=== PATIENT | female | born 1965 | race Caucasian/White ===

== ENCOUNTER → 2016-08-04 | Outpatient (REF) | payer MEDICARE, MEDICAID | LOC: M SFHCLERA 15:25 | PROVIDERS: ATTEND Physician Assistant | DX: R39.89 Other symptoms and signs involving the genitourinary system (principal) | CPT/HCPCS: 81002; 87086; G0463 ==

== ENCOUNTER 2016-08-22 16:54 | Emergency (ER) | payer MEDICARE, MEDICAID ==
--- NOTE | 2016-08-22 18:23 | REP ---
Left wrist four views: There is a comminuted, nondisplaced, intra-articular compression fracture of the distal radius. Signed by Augusto Delgado MD 08/22/2016 06:15 P
[2016-08-22] MEDS ORDERED: NORCO, ANEXSIA 5/325MG TABLET (HYDROcodone/ACETAMINOPHEN) As Ordered ONE (19:37)
--- NOTE | 2016-08-22 20:41 | EDDOCDS ---
Nurse's Notes [facility] Name: Faith Watt Age: 50 yrs Sex: Female : 1965 Arrival Date: 08/22/2016 Time: 16:54 Bed I6 Private MD: Areli Saravia M. Diagnosis: Fracture of head of radius;Fracture of lower end of radius Presentation: 08/22 17:09 Presenting complaint: Patient states: fell on ice and feels like she broke her wrist? hs1 or arm. Bony deformity noted to left wrist. Patient reports falling approx 30 [address] in [address] of her home. Adult Sepsis Screening: The patient does not have new or worsening altered mentation. Patient's respiratory rate is less than 22. Systolic blood pressure is greater than 100. Patient has a qSOFA score of 0- Negative Sepsis Screen. Suicide/Homicide risk assessment- the patient denies having any suicidal and/or homicidal ideations and does not present with any other emotional, behavioral or mental health complaints. Status: Patient is not a dining services director or dependent. Transition of care: patient was not received from another setting of care. 17:09 Acuity: ANYA Level 3 hs1 17:09 Method Of Arrival: Walkin/Carried/Asstd hs1 Triage Assessment: 17:16 General: Appears in no apparent distress, Behavior is appropriate for age, cooperative. hs1 Pain: Location: dorsum of left hand and dorsal aspect of left wrist Pain currently is 10 out of 10 on a pain scale. Pt Declines HIV testing. Musculoskeletal: Range of motion limited in left wrist. 19:23 I have visited this patient for a triage reassessment. dsf ACETYLENE BURNER: 17:16 LMP N/A - Hysterectomy hs1 Historical: - Allergies: PENICILLINS; - Home Meds: 1. losartan Unknown oral Unknown 2. metoprolol tartrate 50 mg Oral tab 1 tab 2 times per day 3. Nexium 40 mg Oral cpDR 1 cap once daily 4. trazodone 100 mg Oral tab nightly 5. prazosin 2 mg Oral cap 2 caps nightly - PMHx: Hypertension; GERD; breast CA; - PSHx: Hysterectomy; ; fallopian tube removal; Carpal Tunnel Repair- Right; Laparoscopy; espophageal stretching; - Social history: Smoking status: Patient states was never smoker of tobacco. No barriers to communication noted, The patient speaks fluent Khmer, Speaks appropriately for age. - Family history: Not pertinent. - : The pt / caregiver states he / she is not on anticoagulants. Home medication list is obtained from the patient. - Exposure Risk Screening:: None identified. Screenin:38 Screening information is obtained from the patient. Fall risk: No risks identified. mlc Assistance ADL's: requires no assistance with activities of daily living. Abuse/DV Screen: The patient / caregiver reports he/she is: not in a situation that causes fear, pain or injury. Nutritional screening: No deficits noted. Advance Directives: There is no active DNR order. home support is adequate. Assessment: 19:21 General: Appears uncomfortable, Behavior is appropriate for age, cooperative. Pain: dsf Location: left forearm and left hand Pain currently is 10 out of 10 on a pain scale. Quality of pain is described as aching, sharp, throbbing. Neurological: Level of Consciousness is awake, alert. Cardiovascular: Capillary refill < 3 seconds. Respiratory: Airway is patent Respiratory effort is even, unlabored, Respiratory pattern is regular, symmetrical. Derm: Skin is pink, warm & dry. Musculoskeletal: Capillary refill < 3 seconds in left fingers. 19:28 General: Appears uncomfortable. Pain: Location: left antecubital area, dorsal aspect of nn1 left forearm, left wrist, left hand, left elbow and palmar aspect of left forearm Pain currently is 10 out of 10 on a pain scale. Musculoskeletal: Capillary refill < 3 seconds in left fingers Range of motion limited in left elbow and left wrist and left hand. 19:30 Musculoskeletal: Swelling present in palmar aspect of left forearm and left elbow and nn1 dorsal aspect of left forearm and left wrist. 20:38 General: Appears in no apparent distress, comfortable, Behavior is cooperative. Pain: mlc Pain currently is 9 out of 10 on a pain scale. Neurological: Level of Consciousness is awake, alert, obeys commands, Oriented to person, place, time. Respiratory: Airway is patent Respiratory effort is even, unlabored, Respiratory pattern is regular. Derm: Skin is pink, warm & dry. Musculoskeletal: Circulation, motion, and sensation intact Capillary refill < 3 seconds in left fingers. Vital Signs: 16:55 BP 128 / 84; Pulse 96; Resp 18; Temp 96.7(O); Pulse Ox 99% on R/A; Weight 72.12 kg (R); elp Height 5 ft. 3 in. (160.02 cm) (R); 19:28 BP 103 / 68; Pulse 98; Resp 18; Temp 99.5; Pulse Ox 97% on R/A; Pain 10/10; nn1 20:38 BP 111 / 68; Pulse 87; Resp 18; Pulse Ox 97% ; Pain 9/10; mlc 16:55 Body Mass Index 28.17 (72.12 kg, 160.02 cm) el Vitals: 16:55 Log In Time: August 22, 2016 at 16:54. elp ED Course: 16:55 Patient visited by Lyndsey Travis PCA. elp 16:55 Areli Saravia is Private Physician. elp 16:55 Patient moved to Waiting elp 16:56 Patient visited by Lyndsey Travis PCA. elp 16:56 Patient moved to Pre RCE elp 17:11 Triage Initiated hs1 19:09 Wrist, Complete Returned. EDMS 19:19 Patient moved to Triage 3 jmv 19:23 Patient visited by Nida Nails,ROBBIE. dsf 19:24 Rajat Espinosa FNP is [facility]. ke 19:25 Patient visited by Rajat Espinosa FNP. ke 19:25 Patient visited by Rajat Espinosa FNP. ke 19:31 [facility] Payment Agreement was scanned into [employer] and attached to record. [id number] 19:40 Patient moved to TR7 dsf 20:04 Patient visited by Rajat Espinosa FNP. ke 20:17 Patient moved to I6 / nn1 20:27 [facility] is Referral Physician. ke 20:38 The patient / caregiver is instructed regarding the plan of care and ED course. mlc 20:38 No IV's were initiated during this patient's visit. No procedures done that require [facility] assistance. Administered Medications: 19:39 Drug: HYDROcodone-acetaminophen 2 tabs [hydrocodone 5 mg-acetaminophen 325 mg tablet (2 dsf tabs)] Route: PO; Order Results: Radiology Order: Wrist, Complete Test: Wrist, Complete REASON FOR EXAMINATION: Trauma; Left wrist four views:; ; There is a comminuted, nondisplaced, intra-articular compression fracture of the; distal radius.; ; ; Signed by; Augusto Delgado MD 08/22/2016 06:15 P; Outcome: 20:28 Discharge ordered by Provider. juaquin 20:38 Discharge Assessment: Patient awake, alert and oriented x 3. No cognitive and/or mlc functional deficits noted. Patient verbalized understanding of disposition instructions. The following High Risk Discharge criteria are identified: None. Discharged to home ambulatory. Condition: good. Discharge instructions given to patient, Instructed on discharge instructions, follow up and referral plans. medication usage, no driving heavy equipment, Demonstrated understanding of instructions, medications, Pt was receptive of discharge instructions/ teaching. Prescriptions given X 2. No special radiology studies were completed. Property sent home with patient. 20:40 Discharge Assessment: patient administered narcotics - yes. Pt provided with safe mlc discharge. 20:41 Patient left the ED. mlc Signatures: Dispatcher [employer] EDMS Rajat Espinosa, TWENTY ONE DEALER TWENTY ONE DEALER Angella Gonzalez RN RN hs1 Nida Nails,RN RN dsf Lyndsey Travis, AUTOMATIC FOLDER SEAMER AUTOMATIC FOLDER SEAMER elp Katt Blanca RN RN mlc Nunez, Nikkole, RN RN nn1 Adriana Carcamo, Reg Reg ks16 Myron Mckinley, AUTOMATIC FOLDER SEAMER AUTOMATIC FOLDER SEAMER jmv PEE
--- NOTE | 2016-08-22 20:41 | EDDOCDS ---
Physician Documentation [facility] Name: Faith Watt Age: 50 yrs Sex: Female : 1965 Arrival Date: 08/22/2016 Time: 16:54 Bed I Private MD: Areli Saravia M. Disposition: 08/22/16 20:28 Discharged to Home/Self Care. Impression: Fracture of head of radius, Fracture of lower end of radius. - Condition is Stable. - Discharge Instructions: Elastic Bandage and RICE, Cast or Splint Care, Wrist Fracture. - Prescriptions for [place] 5- 325 mg Oral Tablet - take 1 tablet by ORAL route every 6 hours As needed MDD: 4 tabs; 20 tablet. Zofran 4 mg Oral Tablet - take 1 tablet by ORAL route 4 times per day As needed; 10 tablet. - Medication Reconciliation, Local Pharmacy Hours form. - Follow up: [facility]; When: Call to arrange an appointment; Reason: Further diagnostic work-up, Continuance of care. - Problem is new. - Symptoms are unchanged. Historical: - Allergies: PENICILLINS; - Home Meds: 1. losartan Unknown oral Unknown 2. metoprolol tartrate 50 mg Oral tab 1 tab 2 times per day 3. Nexium 40 mg Oral cpDR 1 cap once daily 4. trazodone 100 mg Oral tab nightly 5. prazosin 2 mg Oral cap 2 caps nightly - PMHx: Hypertension; GERD; breast CA; - PSHx: Hysterectomy; ; fallopian tube removal; Carpal Tunnel Repair- Right; Laparoscopy; espophageal stretching; - Social history: Smoking status: Patient states was never smoker of tobacco. No barriers to communication noted, The patient speaks fluent French, Speaks appropriately for age. - Family history: Not pertinent. - : The pt / caregiver states he / she is not on anticoagulants. Home medication list is obtained from the patient. - Exposure Risk Screening:: None identified. 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 3 in. (160.02 cm) (R); 19:28 BP 103 / 68; Pulse 98; Resp 18; Temp 99.5; Pulse Ox 97% on R/A; Pain 10/10; nn1 20:38 BP 111 / 68; Pulse 87; Resp 18; Pulse Ox 97% ; Pain 9/10; mlc 16:55 Body Mass Index 28.17 (72.12 kg, 160.02 cm) elp MDM: 17:21 Wrist, Complete Ordered. EDMS 19:30 Financial registration complete. ks 19:31 [facility] Payment Agreement was scanned into [employer] and attached to record. ks 19:36 HYDROcodone-acetaminophen 5 mg-325 mg 2 tabs PO once ordered. ke 19:36 Elbow, Complete Ordered. EDMS Administered Medications: 19:39 Drug: HYDROcodone-acetaminophen 2 tabs [hydrocodone 5 mg-acetaminophen 325 mg tablet (2 dsf tabs)] Route: PO; Signatures: Dispatcher [employer] EDMS Rajat Espinosa FNP DOCK PUMPER Angella Jose RN RN hs1 Katt Blanca RN RN [facility] Adriana Carcamo, Reg Reg ks16 Nida Nails RN dsf The chart was reviewed and I authenticate all verbal orders and agree with the evaluation and treatment provided.Attachments: 19:31 [facility] Payment Agreement ks16 MTDD
--- NOTE | 2016-08-23 08:41 | REP ---
Left elbow series: Five views. History: Trauma. Findings: Five views of the left elbow demonstrate normal bones, joints, and soft tissues. No fracture, subluxation or joint effusion is evident. Impression: Negative left elbow series. Signed by Guille Alva MD 08/23/2016 02:59 P
--- NOTE | 2016-08-24 21:41 | EDDOCDS ---
Physician Documentation [facility] Name: Faith Watt Age: 50 yrs Sex: Female : 1965 Arrival Date: 08/22/2016 Time: 16:54 Bed I Private MD: Areli Saravia M. Disposition: 08/22/16 20:28 Discharged to Home/Self Care. Impression: Fracture of head of radius, Fracture of lower end of radius. - Condition is Stable. - Discharge Instructions: Elastic Bandage and RICE, Cast or Splint Care, Wrist Fracture. - Prescriptions for [place] 5- 325 mg Oral Tablet - take 1 tablet by ORAL route every 6 hours As needed MDD: 4 tabs; 20 tablet. Zofran 4 mg Oral Tablet - take 1 tablet by ORAL route 4 times per day As needed; 10 tablet. - Medication Reconciliation, Local Pharmacy Hours form. - Follow up: [facility]; When: Call to arrange an appointment; Reason: Further diagnostic work-up, Continuance of care. - Problem is new. - Symptoms are unchanged. Historical: - Allergies: PENICILLINS; - Home Meds: 1. losartan Unknown oral Unknown 2. metoprolol tartrate 50 mg Oral tab 1 tab 2 times per day 3. Nexium 40 mg Oral cpDR 1 cap once daily 4. trazodone 100 mg Oral tab nightly 5. prazosin 2 mg Oral cap 2 caps nightly - PMHx: Hypertension; GERD; breast CA; - PSHx: Hysterectomy; ; fallopian tube removal; Carpal Tunnel Repair- Right; Laparoscopy; espophageal stretching; - Social history: Smoking status: Patient states was never smoker of tobacco. No barriers to communication noted, The patient speaks fluent Upper Sorbian, Speaks appropriately for age. - Family history: Not pertinent. - : The pt / caregiver states he / she is not on anticoagulants. Home medication list is obtained from the patient. - Exposure Risk Screening:: None identified. 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 3 in. (160.02 cm) (R); 19:28 BP 103 / 68; Pulse 98; Resp 18; Temp 99.5; Pulse Ox 97% on R/A; Pain 10/10; nn1 20:38 BP 111 / 68; Pulse 87; Resp 18; Pulse Ox 97% ; Pain 9/10; mlc 16:55 Body Mass Index 28.17 (72.12 kg, 160.02 cm) elp MDM: 17:21 Wrist, Complete Ordered. EDME 19:30 Financial registration complete. [facility] 19:31 [facility] Payment Agreement was scanned into [employer] and attached to record. [facility] 19:36 HYDROcodone-acetaminophen 5 mg-325 mg 2 tabs PO once ordered. 19:36 Elbow, Complete Ordered. EDME 08/23 10:48 T-Sheet-- Draft Copy was scanned into [employer] and attached to record. gb Administered Medications: 08/22 19:39 Drug: HYDROcodone-acetaminophen 2 tabs [hydrocodone 5 mg-acetaminophen 325 mg tablet (2 dsf tabs)] Route: PO; Signatures: Dispatcher [employer] EDME Becky Reyes, Reg Reg gb Rajat Espinosa, REPORTING MANAGER REPORTING MANAGER Angella Jose RN RN hs1 Katt Blanca RN RN [facility] Adriana Carcamo, Reg Reg ks16 Nida Nails RN dsf The chart was reviewed and I authenticate all verbal orders and agree with the evaluation and treatment provided.Attachments: 19:31 [facility] Payment Agreement [facility] 08/23 10:48 T-Sheet-- Draft Copy gb Chart Complete MTDD
--- NOTE | 2016-08-24 21:41 | EDDOCDS ---
Physician Documentation [facility] Name: Faith Watt Age: 50 yrs Sex: Female : 1965 Arrival Date: 08/22/2016 Time: 16:54 Bed I Private MD: Areli Saravia M. Disposition: 08/22/16 20:28 Discharged to Home/Self Care. Impression: Fracture of head of radius, Fracture of lower end of radius. - Condition is Stable. - Discharge Instructions: Elastic Bandage and RICE, Cast or Splint Care, Wrist Fracture. - Prescriptions for [place] 5- 325 mg Oral Tablet - take 1 tablet by ORAL route every 6 hours As needed MDD: 4 tabs; 20 tablet. Zofran 4 mg Oral Tablet - take 1 tablet by ORAL route 4 times per day As needed; 10 tablet. - Medication Reconciliation, Local Pharmacy Hours form. - Follow up: [facility]; When: Call to arrange an appointment; Reason: Further diagnostic work-up, Continuance of care. - Problem is new. - Symptoms are unchanged. Historical: - Allergies: PENICILLINS; - Home Meds: 1. losartan Unknown oral Unknown 2. metoprolol tartrate 50 mg Oral tab 1 tab 2 times per day 3. Nexium 40 mg Oral cpDR 1 cap once daily 4. trazodone 100 mg Oral tab nightly 5. prazosin 2 mg Oral cap 2 caps nightly - PMHx: Hypertension; GERD; breast CA; - PSHx: Hysterectomy; ; fallopian tube removal; Carpal Tunnel Repair- Right; Laparoscopy; espophageal stretching; - Social history: Smoking status: Patient states was never smoker of tobacco. No barriers to communication noted, The patient speaks fluent Greek, Speaks appropriately for age. - Family history: Not pertinent. - : The pt / caregiver states he / she is not on anticoagulants. Home medication list is obtained from the patient. - Exposure Risk Screening:: None identified. 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 3 in. (160.02 cm) (R); 19:28 BP 103 / 68; Pulse 98; Resp 18; Temp 99.5; Pulse Ox 97% on R/A; Pain 10/10; nn1 20:38 BP 111 / 68; Pulse 87; Resp 18; Pulse Ox 97% ; Pain 9/10; mlc 16:55 Body Mass Index 28.17 (72.12 kg, 160.02 cm) elp MDM: 17:21 Wrist, Complete Ordered. EDNV 19:30 Financial registration complete. [facility] 19:31 [facility] Payment Agreement was scanned into [employer] and attached to record. [facility] 19:36 HYDROcodone-acetaminophen 5 mg-325 mg 2 tabs PO once ordered. 19:36 Elbow, Complete Ordered. EDNV 08/23 10:48 T-Sheet-- Draft Copy was scanned into [employer] and attached to record. gb Administered Medications: 08/22 19:39 Drug: HYDROcodone-acetaminophen 2 tabs [hydrocodone 5 mg-acetaminophen 325 mg tablet (2 dsf tabs)] Route: PO; Signatures: Dispatcher [employer] EDNV Becky Reyes, Reg Reg gb Rajat Espinosa, EMPLOYEE BENEFITS COORDINATOR EMPLOYEE BENEFITS COORDINATOR Angella Jose RN RN hs1 Katt Blanca RN RN [facility] [place] Adriana Carcamo, Reg Reg ks16 Nida Nails RN dsf The chart was reviewed and I authenticate all verbal orders and agree with the evaluation and treatment provided.Attachments: 19:31 [facility] Payment Agreement [facility] 08/23 10:48 T-Sheet-- Draft Copy gb Chart Complete MTDD
--- NOTE | 2016-08-24 21:41 | EDDOCDS ---
Nurse's Notes [facility] Name: Faith Watt Age: 50 yrs Sex: Female : 1965 Arrival Date: 08/22/2016 Time: 16:54 Bed I6 Private MD: Areli Saravia M. Diagnosis: Fracture of head of radius;Fracture of lower end of radius Presentation: 08/22 17:09 Presenting complaint: Patient states: fell on ice and feels like she broke her wrist? hs1 or arm. Bony deformity noted to left wrist. Patient reports falling approx 30 [address] in [address] of her home. Adult Sepsis Screening: The patient does not have new or worsening altered mentation. Patient's respiratory rate is less than 22. Systolic blood pressure is greater than 100. Patient has a qSOFA score of 0- Negative Sepsis Screen. Suicide/Homicide risk assessment- the patient denies having any suicidal and/or homicidal ideations and does not present with any other emotional, behavioral or mental health complaints. 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 Transition of care: patient was not received from another setting of care. 17:09 Acuity: ANYA Level 3 hs1 17:09 Method Of Arrival: Walkin/Carried/Asstd hs1 Triage Assessment: 17:16 General: Appears in no apparent distress, Behavior is appropriate for age, cooperative. hs1 Pain: Location: dorsum of left hand and dorsal aspect of left wrist Pain currently is 10 out of 10 on a pain scale. Pt Declines HIV testing. Musculoskeletal: Range of motion limited in left wrist. 19:23 I have visited this patient for a triage reassessment. 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 losartan Unknown oral Unknown 2. metoprolol tartrate 50 mg Oral tab 1 tab 2 times per day 3. Nexium 40 mg Oral cpDR 1 cap once daily 4. trazodone 100 mg Oral tab nightly 5. prazosin 2 mg Oral cap 2 caps nightly - PMHx: Hypertension; GERD; breast CA; - PSHx: Hysterectomy; ; fallopian tube removal; Carpal Tunnel Repair- Right; Laparoscopy; espophageal stretching; - Social history: Smoking status: Patient states was never smoker of tobacco. No barriers to communication noted, The patient speaks fluent Bengali, Speaks appropriately for age. - Family history: Not pertinent. - : The pt / caregiver states he / she is not on anticoagulants. Home medication list is obtained from the patient. - Exposure Risk Screening:: None identified. Screenin:38 Screening information is obtained from the patient. Fall risk: No risks identified. mlc Assistance ADL's: requires no assistance with activities of daily living. Abuse/DV Screen: The patient / caregiver reports he/she is: not in a situation that causes fear, pain or injury. Nutritional screening: No deficits noted. Advance Directives: There is no active DNR order. home support is adequate. Assessment: 19:21 General: Appears uncomfortable, Behavior is appropriate for age, cooperative. Pain: dsf Location: left forearm and left hand Pain currently is 10 out of 10 on a pain scale. Quality of pain is described as aching, sharp, throbbing. Neurological: Level of Consciousness is awake, alert. Cardiovascular: Capillary refill < 3 seconds. Respiratory: Airway is patent Respiratory effort is even, unlabored, Respiratory pattern is regular, symmetrical. Derm: Skin is pink, warm & dry. Musculoskeletal: Capillary refill < 3 seconds in left fingers. 19:28 General: Appears uncomfortable. Pain: Location: left antecubital area, dorsal aspect of nn1 left forearm, left wrist, left hand, left elbow and palmar aspect of left forearm Pain currently is 10 out of 10 on a pain scale. Musculoskeletal: Capillary refill < 3 seconds in left fingers Range of motion limited in left elbow and left wrist and left hand. 19:30 Musculoskeletal: Swelling present in palmar aspect of left forearm and left elbow and nn1 dorsal aspect of left forearm and left wrist. 20:38 General: Appears in no apparent distress, comfortable, Behavior is cooperative. Pain: mlc Pain currently is 9 out of 10 on a pain scale. Neurological: Level of Consciousness is awake, alert, obeys commands, Oriented to person, place, time. Respiratory: Airway is patent Respiratory effort is even, unlabored, Respiratory pattern is regular. Derm: Skin is pink, warm & dry. Musculoskeletal: Circulation, motion, and sensation intact Capillary refill < 3 seconds in left fingers. Vital Signs: 16:55 BP 128 / 84; Pulse 96; Resp 18; Temp 96.7(O); Pulse Ox 99% on R/A; Weight 72.12 kg (R); elp Height 5 ft. 3 in. (160.02 cm) (R); 19:28 BP 103 / 68; Pulse 98; Resp 18; Temp 99.5; Pulse Ox 97% on R/A; Pain 10/10; nn1 20:38 BP 111 / 68; Pulse 87; Resp 18; Pulse Ox 97% ; Pain 9/10; mlc 16:55 Body Mass Index 28.17 (72.12 kg, 160.02 cm) [facility] Vitals: 16:55 Log In Time: August 22, 2016 at 16:54. [facility] ED Course: 16:55 Patient visited by Lyndsey Travis PCA. elp 16:55 Areli Saravia is Private Physician. elp 16:55 Patient moved to Waiting elp 16:56 Patient visited by Lyndsey Travis PCA. elp 16:56 Patient moved to Pre RCE elp 17:11 Triage Initiated hs1 19:09 Wrist, Complete Returned. EDMS 19:19 Patient moved to Triage 3 jmv 19:23 Patient visited by Nida Nails,ROBBIE. dsf 19:24 [facility]spinosa FNP [facility]. ke 19:25 Patient visited by Rajat Espinosa FNP. ke 19:25 Patient visited by Rajat Espinosa FNP. ke 19:31 REPLACED BY [facility] Payment Agreement was scanned into [employer] and attached to record. ks16 19:40 Patient moved to TR7 dsf 20:04 Patient visited by Rajta Espinosa FNP. ke 20:17 Patient moved to I6 / 28 nn1 20:27 [facility] is Referral Physician. ke 20:38 The patient / caregiver is instructed regarding the plan of care and ED course. mlc 20:38 No IV's were initiated during this patient's visit. No procedures done that require mlc assistance. 08/23 09:03 Elbow, Complete Returned. EDMS 10:48 T-Sheet-- Draft Copy was scanned into [employer] and attached to record. gb Administered Medications: 08/22 19:39 Drug: HYDROcodone-acetaminophen 2 tabs [hydrocodone 5 mg-acetaminophen 325 mg tablet (2 dsf tabs)] Route: PO; Order Results: Radiology Order: Wrist, Complete Test: Wrist, Complete REASON FOR EXAMINATION: Trauma; Left wrist four views:; ; There is a comminuted, nondisplaced, intra-articular compression fracture of the; distal radius.; ; ; Signed by; Augusto Delgado MD 08/22/2016 06:15 P; Radiology Order: Elbow, Complete Test: Elbow, Complete REASON FOR EXAMINATION: Trauma; Left elbow series: Five views.; ; History: Trauma.; ; Findings: Five views of the left elbow demonstrate normal bones, joints, and; soft tissues. No fracture, subluxation or joint effusion is evident.; ; Impression:; ; Negative left elbow series.; ; ; Signed by; Guille Alva MD 08/23/2016 02:59 P; Outcome: 20:28 Discharge ordered by Provider. ke 20:38 Discharge Assessment: Patient awake, alert and oriented x 3. No cognitive and/or mlc functional deficits noted. Patient verbalized understanding of disposition instructions. The following High Risk Discharge criteria are identified: None. Discharged to home ambulatory. Condition: good. Discharge instructions given to patient, Instructed on discharge instructions, follow up and referral plans. medication usage, no driving heavy equipment, Demonstrated understanding of instructions, medications, Pt was receptive of discharge instructions/ teaching. Prescriptions given X 2. No special radiology studies were completed. Property sent home with patient. 20:40 Discharge Assessment: patient administered narcotics - yes. Pt provided with safe mlc discharge. 20:41 Patient left the ED. mlc Signatures: Dispatcher [employer] EDRI Becky Reyes, Reg Reg gb Rajat Espinosa, INBOUND SALES CONSULTANT INBOUND SALES CONSULTANT Angella Gonzalez RN RN hs1 Nida NailsRN RN patitof Lyndsey Travis, HAY RAKE OPERATOR HAY RAKE OPERATOR elp Katt Blanca RN RN mlc Nunez, Nikkole, RN RN nn1 Adriana Carcamo, Reg Reg ks16 Myron Mckinley, HAY RAKE OPERATOR HAY RAKE OPERATOR jmv Chart Complete MTDD
== END 2016-08-22 20:41 | disposition home or self-care (01) ==
LOC: M ED 16:54
DX: S52.122A Displaced fracture of head of left radius, initial encounter for closed fracture (principal); S52.502A Unspecified fracture of the lower end of left radius, initial encounter for closed fracture; W00.0XXA Fall on same level due to ice and snow, initial encounter; Y92.019 Unspecified place in single-family (private) house as the place of occurrence of the external cause; Y93.01 Activity, walking, marching and hiking; Y99.8 Other external cause status; I10 Essential (primary) hypertension; K21.9 Gastro-esophageal reflux disease without esophagitis; Z85.3 Personal history of malignant neoplasm of breast; Z79.899 Other long term (current) drug therapy; Z88.0 Allergy status to penicillin

== ENCOUNTER → 2016-08-24 | Outpatient (CLI) | payer MEDICARE, MEDICAID ==
--- NOTE | 2016-08-24 13:36 | REP ---
CT of the left wrist: Comparison is a plain film study dated 08/22/2016. The axial images are acquired. Automatic: Constructions are performed by the computer. These are in oblique sagittal coronal projections. True sagittal coronal reformats are also performed manually. The There is casting material stabilizing a comminuted fracture of the distal radius. The fracture is interarticular. There is a depressed fragment along the articular surface of the distal radius. The depression measures approximately 2 mm. There are comminuted fragments, minimally-displaced. There is no dislocation. No other carpal ossicle fracture is identified. Signed by Augusto Delgado MD 08/24/2016 01:28 P
== END ==
LOC: M RAD 12:06
PROVIDERS: ATTEND Orthopaedic Surgery
DX: S52.532A Colles' fracture of left radius, initial encounter for closed fracture (principal); X58.XXXA Exposure to other specified factors, initial encounter; Y92.89 Other specified places as the place of occurrence of the external cause

== ENCOUNTER → 2016-08-29 | Outpatient (REF) | payer MEDICARE, MEDICAID ==
[2016-08-29 13:02] LABS: ANION GAP 9 MEQ/L (8-16); BLOOD UREA NITROGEN 16 MG/DL (7-18); CALCIUM LEVEL 9.7 MG/DL (8.5-10.1); CARBON DIOXIDE LEVEL 27 MEQ/L (21-32); CHLORIDE LEVEL 102 MEQ/L (98-107); CHOLESTEROL LEVEL 251 MG/DL (<200); CREATININE FOR GFR 0.58 MG/DL (0.55-1.02); FREE T4 1.02 NG/DL (0.76-1.46); GLOMERULAR FILTRATION RATE > 60.0 (>58); GLUCOSE, FASTING 93 MG/DL (70-105); POTASSIUM SERUM 3.9 MEQ/L (3.5-5.1); SODIUM LEVEL 138 MEQ/L (136-145); TRIGLYCERIDES LEVEL 314 MG/DL (<150)
== END ==
LOC: M SFHCLERA 07:57
PROVIDERS: ATTEND Family Medicine
DX: Z00.00 Encounter for general adult medical examination without abnormal findings (principal); I10 Essential (primary) hypertension
CPT/HCPCS: 80048; 80061; 82652; 84439; 84443; 93005; G0463

== ENCOUNTER → 2016-12-19 | Outpatient (REF) | payer MEDICARE, MEDICAID ==
[~2016-12-19] MED LIST: ALBU17IN INH; CLON1TAB PO; CYCL10TA PO; ESOM0.1C PO; FLUT1SPR2; LOSARTAN/HCTZ PO; METO50TA2 PO; NAPR500T PO; PRAZ2CAP PO; TAMO20TA4 PO; TRAZ150T14 PO
== END ==
LOC: M SFHCLERA 16:08
PROVIDERS: ATTEND Family Medicine
DX: C44.619 Basal cell carcinoma of skin of left upper limb, including shoulder (principal)
CPT/HCPCS: 11602; 88305; G0463

== ENCOUNTER 2016-12-22 14:13 | Emergency (ER) | payer OTHER, MEDICARE, MEDICAID ==
[~2016-12-22] VITALS: Ht 167.6 cm; Wt 72.6 kg
[2016-12-22] MEDS ORDERED: TAMO20TA4 PO (14:41)
[2016-12-22] MEDS ORDERED: METO50TA2 PO (14:41)
[2016-12-22] MEDS ORDERED: CLON1TAB PO (14:41)
[2016-12-22] MEDS ORDERED: LOSARTAN/HCTZ PO (14:41)
[2016-12-22] MEDS ORDERED: ESOM0.1C PO (14:41)
[2016-12-22] MEDS ORDERED: ALBU17IN INH (14:41)
[2016-12-22] MEDS ORDERED: FLUT1SPR2 (14:41)
[2016-12-22] MEDS ORDERED: TRAZ150T14 PO (14:41)
[2016-12-22] MEDS ORDERED: PRAZ2CAP PO (14:41)
--- NOTE | 2016-12-22 16:50 | REP ---
CT Head without contrast HISTORY: Trauma COMPARISON: None There is no intraparenchymal hemorrhage, acute infarct, mass or midline shift. The ventricular system is normal in appearance. There is no extra cerebral collection. There is no fracture. The visualized sinuses are clear. IMPRESSION: There is no intracranial lesion. Signed by Earle Gomes MD 12/22/2016 04:42 P
[2016-12-22] MEDS ORDERED: NAPR500T PO (17:48)
[2016-12-22] MEDS ORDERED: CYCL10TA PO (17:48)
--- NOTE | 2016-12-22 17:51 | REP ---
Lumbar spine five views: There are no comparisons. Vertebral body heights, interspacing alignment are normal. There is no spondylolysis or spondylolisthesis. The facets, pedicles and sacroiliac articulations are. There are pelvic calcifications, likely phleboliths. Impression: Negative lumbar spine. Signed by Augusto Delgado MD 12/22/2016 05:42 P
--- NOTE | 2016-12-22 17:52 | REP ---
Right shoulder three views: There is no fracture or dislocation. There is a small calcification lateral to the humeral head compatible with calcific tendonitis. Mineralization is normal. There is no radiopaque foreign body. 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 Signed by Augusto Delgado MD 12/22/2016 05:43 P
[2016-12-22 17:57] VITALS: BP 140/80
--- NOTE | 2016-12-22 18:17 | REP ---
MR CERVICAL SPINE WITHOUT CONTRAST: HISTORY: Trauma. There is no acute fracture or subluxation. A disc bulge with associated osteophyte formation is present at the C5-6 level. There is minimal narrowing of the spinal canal. Uncinate process and or facet hypertrophy are present at the C4-5 and 5-6 levels . These findings produce minimal narrowing of the neural foramina. The C4-5 through C6-7 intervertebral discs are decreased in height consistent with disc degeneration. There loss of the normal lordotic curve. Ill-defined hypodensities are present in the thyroid gland. Calcifications are present in the left thyroid lobe. IMPRESSION: 1. There is no acute fracture or subluxation. 2. There is cervical spondylosis at the C4-5 through C6-7 levels. 3. There are ill-defined hypodensities in the thyroid gland. These may represent cysts. Ultrasound may be helpful for further evaluation. Signed by Earle Gomes MD 12/25/2016 08:32 A
== END 2016-12-22 18:02 | disposition home or self-care (01) ==
LOC: M ED 16:18
DX: S13.4XXA Sprain of ligaments of cervical spine, initial encounter (principal); S43.401A Unspecified sprain of right shoulder joint, initial encounter; M47.812 Spondylosis without myelopathy or radiculopathy, cervical region; M54.9 Dorsalgia, unspecified; V49.50XA Passenger injured in collision with unspecified motor vehicles in traffic accident, initial encounter; Y92.410 Unspecified street and highway as the place of occurrence of the external cause; Y93.9 Activity, unspecified; Y99.9 Unspecified external cause status; Z79.899 Other long term (current) drug therapy; Z88.0 Allergy status to penicillin

== ENCOUNTER 2017-02-17 13:06 | Emergency (ER) | payer MEDICARE, MEDICAID ==
[~2017-02-17] VITALS: Ht 160 cm; Wt 72.7 kg
[~2017-02-17 13:06] MED LIST changes: -METO50TA2 PO; +METO50TA7 PO; -TRAZ150T14 PO; +TRAZ1TAB14 PO
[2017-02-17] MEDS ORDERED: PERCOCET 5MG/325MG TAB PO ONE (15:45)
[2017-02-17] MEDS ORDERED: PERC5TAB12 PO (17:45)
[2017-02-17 17:58] VITALS: BP 117/72
--- NOTE | 2017-02-18 08:51 | REP ---
THREE-VIEW CERVICAL SPINE: 02/17/2017. Clinical history: The patient fell. Comparison: CT cervical spine 01/01/2017. Findings: Lateral view, swimmer's projection, open-mouth views and AP view for total of five images. There is cervical spondylosis with sclerosis of the endplates anterior and posterior osteophytes and disc space narrowing at C5-6. Lesser disc space narrowing at other levels without the sclerosis or spurring. There is reversal of the normal cervical lordosis at C5-6 although very gently. The C1-2 relationship is normal. There are a few calcifications over the left neck consistent with vascular calcifications in the left carotid artery. No torticollis. Spinous processes intact. Dens articulates normally with C1 and its relationship to the lateral masses normal. Cervicothoracic junction aligns normally. There is no prevertebral swelling. Impression: 1. Reversal of cervical lordosis at C5-6 with cervical spondylosis greatest at this level. This is unchanged from appearance on CT 2 months ago. 2. No compression fracture, prevertebral swelling or malalignment. Signed by Dwain Fischer MD 02/18/2017 05:47 P
--- NOTE | 2017-02-18 08:53 | REP ---
THORACIC SPINE, THREE VIEWS: 02/17/2017. Clinical history: Trauma, patient fell. Findings: No prior study. The AP view shows very gentle dextroconvex curve mid upper thoracic spine. The spinous processes, pedicles, transverse processes, posterior rib articulations and medial clavicles all intact. Lungs hypoinflated with crowded markings. The lateral view shows small marginal osteophytes without compression deformity or focal lesion. No exaggeration of thoracic kyphosis. Incidentally noted are the vascular calcifications in the left carotid. Impression: 1. Mild degenerative disc changes in the gentle dextrorotatory curvature upper thoracic spine. No acute compression deformity or bony destructive lesion. Signed by Dwain Fischer MD 02/18/2017 05:47 P
--- NOTE | 2017-02-18 08:54 | REP ---
LUMBOSACRAL SPINE COMPLETE: 02/17/2017. Comparison: 12/22/2016. Clinical history: Trauma, patient fell. Findings: Five views were provided. The AP view shows no scoliosis. Pedicles, spinous and transverse processes intact. The lower thoracic vertebral levels and visualized ribs intact. SI joints, sacral ala and foramina as well as visualized portions of iliac wings and hips were intact. I see no spondylolysis or spondylolisthesis. There is very minor facet arthropathy at L4-5 and L5-S1. There are vascular calcifications of the aorta and branches. Disc space heights with slight narrowing at L4-5 compared to the level above. No compression deformity of destructive lesion. Impression: 1. Mild hypertrophic facet changes lower lumbar spine and slight disc space narrowing at L4-5 without compression deformity, loss of lordosis or other acute finding. 2. Aortoiliac calcification without aneurysm. Signed by Dwain Fischer MD 02/18/2017 05:48 P
--- NOTE | 2017-02-18 08:56 | REP ---
LEFT ANKLE: 02/17/2017. Comparison: left foot this date. Findings: Four views were provided. Inferior to the lateral malleolus is a curvilinear ossific density. There is some soft tissue swelling over the lateral malleolus. This avulsion fragment has very smooth margins and I suspect it is old, but please correlate with palpation for a focal tenderness. The mortise joint was symmetric and preserved. I do not see a talar dome osteochondral defect. No definite acute fracture of the tibia or fibula. There is a plantar calcaneal spur. Subtalar joints intact. Talonavicular and calcaneocuboid joints normal. Impression: 1. Soft tissues swelling about the ankle, especially laterally and with a small avulsion without ossific density having smooth margins suggesting it is likely old. Please correlate with palpation. No definite acute fracture. Signed by Dwain Fischer MD 02/18/2017 05:48 P
--- NOTE | 2017-02-18 08:58 | REP ---
LEFT FOOT COMPLETE: 02/17/2017. Clinical history: Trauma, patient fell. Findings: Four views were provided and compared to the ankle series this same date. There is a small ossific density adjacent to the distal tip of the lateral malleolus and it has smooth regular margins suggesting this is old. There is mild soft-tissue swelling about the ankle and hind foot. Talus and navicular with normal articulation and no spurring. Calcaneocuboid joint also intact. Tiny plantar spur on the calcaneus. The tarsal bones, MTP, TMT joints, and the tarsal bones and their articulations were unremarkable. The metatarsals and phalanges show no definite or displaced fracture. Very minimal degenerative changes. Impression: 1. Small plantar heel spur and some soft tissue swelling about the lateral malleolus with an old avulsion suggested about the distal tip lateral malleolus. No definite acute avulsion or other fracture. Signed by Dwain Fischer MD 02/18/2017 05:49 P
== END 2017-02-17 17:59 | disposition home or self-care (01) ==
LOC: M ED 13:06
DX: S93.402A Sprain of unspecified ligament of left ankle, initial encounter (principal); M54.9 Dorsalgia, unspecified; Z85.3 Personal history of malignant neoplasm of breast; I10 Essential (primary) hypertension; F43.12 Post-traumatic stress disorder, chronic; W01.198A Fall on same level from slipping, tripping and stumbling with subsequent striking against other object, initial encounter; Y92.099 Unspecified place in other non-institutional residence as the place of occurrence of the external cause; Y93.89 Activity, other specified; Y99.9 Unspecified external cause status

== ENCOUNTER → 2017-03-06 | Outpatient (CLI) | payer MEDICARE, MEDICAID ==
[~2017-03-06] MED LIST changes: +PERC5TAB12 PO
[2017-03-06 09:50] LABS: BASO % 0.3 % (0.0-1.0); EOS # 0.2 K/mm3 (0.0-0.50); LARGE UNSTAINED CELL # 0.2 K/mm3 (0.0-0.4); LARGE UNSTAINED CELL % 1.8 % (0.0-4.0); LYMPH # 2.8 K/mm3 (1.5-4.5); LYMPH % 30.4 % (24.0-44.0); MEAN CORPUSCULAR HEMOGLOBIN 32.4 pg (27.0-33.0); MEAN CORPUSCULAR HGB CONC 33.5 g/dl (32.0-36.5); MEAN CORPUSCULAR VOLUME 96.8 fl (80.0-96.0); MONO # 0.3 K/mm3 (0.0-0.8); MONO % 3.4 % (0.0-5.0); NEUTROPHILS # 5.5 K/mm3 (1.8-7.7); PLATELET COUNT, AUTOMATED 171 k/mm3 (150-450); RED CELL DISTRIBUTION WIDTH 12.6 % (11.5-14.5); WHITE BLOOD COUNT 8.8 K/mm3 (4.0-10.0)
[2017-03-06 10:11] LABS: ALBUMIN 3.3 GM/DL (3.2-5.2); ALBUMIN/GLOBULIN RATIO 1.03 (1.00-1.93); ALKALINE PHOSPHATASE 71 U/L (45-117); ALT/SGPT 22 U/L (12-78); ANION GAP 8 MEQ/L (8-16); AST/SGOT 15 U/L (15-37); BILIRUBIN,TOTAL 0.4 MG/DL (0.2-1.0); BLOOD UREA NITROGEN 14 MG/DL (7-18); CALCIUM LEVEL 9.1 MG/DL (8.5-10.1); CARBON DIOXIDE LEVEL 25 MEQ/L (21-32); CHLORIDE LEVEL 107 MEQ/L (98-107); CREATININE FOR GFR 0.54 MG/DL (0.55-1.02); GLOMERULAR FILTRATION RATE > 60.0 (>58); GLUCOSE, FASTING 93 MG/DL (70-105); POTASSIUM SERUM 4.2 MEQ/L (3.5-5.1); SODIUM LEVEL 140 MEQ/L (136-145); TOTAL PROTEIN 6.5 GM/DL (6.4-8.2)
== END ==
LOC: M LAB 08:51
PROVIDERS: ATTEND Registered Nurse Psychiatric/Mental Health
DX: F31.81 Bipolar II disorder (principal)

== ENCOUNTER → 2017-03-12 | Outpatient (CLI) | payer MEDICARE, MEDICAID ==
--- NOTE | 2017-03-12 15:05 | ECGEPIP ---
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 No prior ECG available for comparison at the time of interpretation. Electronically Signed On 03-12-2017 15:05:02 EDT by Gonsalo Hernadez
== END ==
LOC: M EKG 09:27
PROVIDERS: ATTEND Registered Nurse Psychiatric/Mental Health
DX: F31.81 Bipolar II disorder (principal)

== ENCOUNTER → 2017-04-09 | Outpatient (CLI) | payer MEDICARE, MEDICAID | LOC: M LAB 08:05 | PROVIDERS: ATTEND Registered Nurse Psychiatric/Mental Health | DX: F31.81 Bipolar II disorder (principal) ==

== ENCOUNTER → 2017-04-10 | Outpatient (REF) | payer MEDICARE, MEDICAID | LOC: M SFHCLERA 09:44 | PROVIDERS: ATTEND Nurse Practitioner Family | DX: J02.9 Acute pharyngitis, unspecified (principal) ==

== ENCOUNTER → 2017-04-23 | Outpatient (CLI) | payer MEDICARE, MEDICAID | LOC: M LAB 09:24 | PROVIDERS: ATTEND Registered Nurse Psychiatric/Mental Health | DX: F31.81 Bipolar II disorder (principal) ==

== ENCOUNTER → 2017-05-07 | Outpatient (REF) | payer MEDICARE, MEDICAID ==
[2017-05-07 18:58] LABS: FREE T4 0.95 NG/DL (0.76-1.46)
== END ==
LOC: M SFHCLERA 11:37
PROVIDERS: ATTEND Family Medicine
DX: E04.1 Nontoxic single thyroid nodule (principal); Z23 Encounter for immunization
CPT/HCPCS: 84439; 84443; 90686; G0008

== ENCOUNTER → 2017-05-10 | Outpatient (CLI) | payer MEDICARE, MEDICAID ==
[2017-05-10 10:17] LABS: ALBUMIN 3.4 GM/DL (3.2-5.2); ALBUMIN/GLOBULIN RATIO 1.13 (1.00-1.93); ALKALINE PHOSPHATASE 77 U/L (45-117); ALT/SGPT 27 U/L (12-78); ANION GAP 7 MEQ/L (8-16); AST/SGOT 13 U/L (15-37); BILIRUBIN,TOTAL 0.4 MG/DL (0.2-1.0); BLOOD UREA NITROGEN 11 MG/DL (7-18); CALCIUM LEVEL 9.5 MG/DL (8.5-10.1); CARBON DIOXIDE LEVEL 27 MEQ/L (21-32); CHLORIDE LEVEL 108 MEQ/L (98-107); CREATININE FOR GFR 0.57 MG/DL (0.55-1.02); GLOMERULAR FILTRATION RATE > 60.0 (>58); GLUCOSE, FASTING 95 MG/DL (70-105); POTASSIUM SERUM 4.6 MEQ/L (3.5-5.1); SODIUM LEVEL 142 MEQ/L (136-145); TOTAL PROTEIN 6.4 GM/DL (6.4-8.2)
[2017-05-10 10:21] LABS: LITHIUM LEVEL 0.27 MEQ/L (0.60-1.20)
== END ==
LOC: M LAB 08:43
PROVIDERS: ATTEND Registered Nurse Psychiatric/Mental Health
DX: F31.81 Bipolar II disorder (principal)

== ENCOUNTER → 2017-05-10 | Outpatient (CLI) | payer MEDICARE, MEDICAID ==
--- NOTE | 2017-05-10 10:13 | REP ---
Thyroid ultrasound: The thyroid gland is diffusely enlarged. The right lobe measures 6.0 x 1.9 x 2.1 cm. The left lobe measures 5.1 x 1.8-2.0 cm. The isthmus measures 10.4 mm thickness. The thyroid parenchyma is diffusely heterogeneous. There are multiple nodules in both right and left lobes and in the isthmus. The two largest nodules in the right lobe measure 1.1 cm and 2.7 cm. The two largest nodules in the left lobe measure 1.0 cm and 1.8 cm. Impression: Findings are compatible with multinodular goiter. Signed by Augusto Delgado MD 05/10/2017 10:05 A
== END ==
LOC: M RAD 08:40
PROVIDERS: ATTEND Family Medicine
DX: E04.2 Nontoxic multinodular goiter (principal); F31.81 Bipolar II disorder

== ENCOUNTER → 2017-06-05 | Outpatient (CLI) | payer MEDICARE, MEDICAID | LOC: M LAB 10:36 | PROVIDERS: ATTEND Registered Nurse Psychiatric/Mental Health | DX: F31.81 Bipolar II disorder (principal) ==

== ENCOUNTER → 2017-12-04 | Outpatient (CLI) | payer MEDICARE, MEDICAID ==
[2017-12-04 10:13] LABS: ALBUMIN 3.2 GM/DL (3.2-5.2); ALBUMIN/GLOBULIN RATIO 1.07 (1.00-1.93); ALKALINE PHOSPHATASE 109 U/L (45-117); ALT/SGPT 29 U/L (12-78); ANION GAP 7 MEQ/L (8-16); AST/SGOT 15 U/L (7-37); BILIRUBIN,TOTAL 0.3 MG/DL (0.2-1.0); BLOOD UREA NITROGEN 13 MG/DL (7-18); CALCIUM LEVEL 8.9 MG/DL (8.5-10.1); CARBON DIOXIDE LEVEL 23 MEQ/L (21-32); CHLORIDE LEVEL 112 MEQ/L (98-107); GLOMERULAR FILTRATION RATE > 60.0 (>51); GLUCOSE, FASTING 144 MG/DL (70-100); POTASSIUM SERUM 3.7 MEQ/L (3.5-5.1); SODIUM LEVEL 142 MEQ/L (136-145); TOTAL PROTEIN 6.2 GM/DL (6.4-8.2)
[2017-12-04 10:27] LABS: LITHIUM LEVEL < 0.20 MEQ/L (0.60-1.20)
== END ==
LOC: M LAB 08:34
DX: F31.81 Bipolar II disorder (principal)
CPT/HCPCS: 80178

== ENCOUNTER → 2017-12-13 | Outpatient (CLI) | payer MEDICARE, MEDICAID ==
[~2017-12-13] MED LIST changes: -ALBU17IN INH; -CLON1TAB PO; -CYCL10TA PO; +E-Z-GAS II EFFERVESCENT PACKET (SODIUM BICARB./CITRIC ACID/SIMETHICONE) As Ordered; +E-Z-HD 98% w/w 340GM SUSP BTL As Ordered; +E-Z-PAQUE 96% w/w SUSP 176GM BTL As Ordered; -ESOM0.1C PO; -FLUT1SPR2; -LOSARTAN/HCTZ PO; -METO50TA7 PO; -NAPR500T PO; -PERC5TAB12 PO; -PRAZ2CAP PO; -TAMO20TA4 PO; -TRAZ1TAB14 PO
== END ==
LOC: M RAD 08:02
DX: R13.13 Dysphagia, pharyngeal phase (principal); K22.9 Disease of esophagus, unspecified
CPT/HCPCS: 74220

== ENCOUNTER → 2017-12-27 | Outpatient (CLI) | payer MEDICARE, MEDICAID | LOC: M RAD 11:28 | DX: Z12.31 Encounter for screening mammogram for malignant neoplasm of breast (principal) | CPT/HCPCS: 77067 ==

== ENCOUNTER → 2018-01-07 | Outpatient (CLI) | payer MEDICARE, MEDICAID ==
[2018-01-07 09:45] LABS: GLUCOSE, FASTING 91 MG/DL (70-100)
[2018-01-07 10:08] LABS: LITHIUM LEVEL 0.34 MEQ/L (0.60-1.20)
== END ==
LOC: M LAB 08:09
DX: F31.81 Bipolar II disorder (principal); Z79.899 Other long term (current) drug therapy
CPT/HCPCS: 82947

== ENCOUNTER → 2018-04-29 | Outpatient (CLI) | payer MEDICARE, MEDICAID | LOC: M RAD 10:20 | DX: E04.2 Nontoxic multinodular goiter (principal) | CPT/HCPCS: 76536 ==

== ENCOUNTER 2018-05-15 03:02 | Inpatient (IN) | payer MEDICARE, MEDICAID ==
[2018-05-15] MEDS: NS 1,000 ML IV ×3 (03:30→07:30)
[2018-05-15 03:54] LABS: ABG BASE EXCESS 0.3 (-2.0-2.0); ABG HCO3 25.9 MEQ/L (22.0-26.0); ABG O2 SATURATION 94.7 % (95.0-99.0); ABG PARTIAL PRESSURE CO2 45.9 mmHg (35.0-45.0); ABG PARTIAL PRESSURE O2 77.6 mmHg (75.0-100.0); ABG STANDARD HCO3 24.7 MEQ/L (22.0-26.0); ABG TOTAL CO2 27.3 MEQ/L (22.0-29.0); BASO % 0.3 % (0.0-1.0); EOS # 0.3 10^3/uL (0.0-0.50); EOS % 2.5 % (0.0-3.0); HEMATOCRIT 35.3 % (36.0-47.0); HEMOGLOBIN 11.8 g/dl (12.0-15.5); IMMATURE GRANULOCYTE % 0.3 % (0-3.0); LYMPH # 2.5 10^3/uL (1.5-4.5); LYMPH % 24.1 % (24.0-44.0); MEAN CORPUSCULAR HEMOGLOBIN 32.1 pg (27.0-33.0); MEAN CORPUSCULAR HGB CONC 33.4 g/dl (32.0-36.5); MEAN CORPUSCULAR VOLUME 95.9 fl (80.0-96.0); MONO # 0.6 10^3/uL (0.0-0.8); MONO % 6.1 % (0.0-5.0); NEUTROPHILS # 6.8 10^3/uL (1.8-7.7); NEUTROPHILS % 66.7 % (36.0-66.0); PLATELET COUNT, AUTOMATED 163 10^3/uL (150-450); RED BLOOD COUNT 3.68 10^6/uL (4.00-5.40); RED CELL DISTRIBUTION WIDTH 12.3 % (11.5-14.5); WHITE BLOOD COUNT 10.2 10^3/uL (4.0-10.0)
[2018-05-15 04:13] LABS: ACETAMINOPHEN LEVEL < 2.0 UG/ML (10.0-30.0); ALBUMIN 3.4 GM/DL (3.2-5.2); ALBUMIN/GLOBULIN RATIO 1.26 (1.00-1.93); ALKALINE PHOSPHATASE 114 U/L (45-117); ALT/SGPT 17 U/L (12-78); ANION GAP 7 MEQ/L (8-16); AST/SGOT 12 U/L (7-37); BILIRUBIN,DIRECT < 0.1 MG/DL (0.0-0.2); BILIRUBIN,TOTAL 0.3 MG/DL (0.2-1.0); BLOOD UREA NITROGEN 14 MG/DL (7-18); CALCIUM LEVEL 8.9 MG/DL (8.5-10.1); CARBON DIOXIDE LEVEL 29 MEQ/L (21-32); CHLORIDE LEVEL 107 MEQ/L (98-107); CPK CREATINE PHOSPHOKINASE 33 U/L (26-192); CREATININE FOR GFR 0.82 MG/DL (0.55-1.30); ETHYL ALCOHOL (ETHANOL) < 0.003 % (0.000-0.010); GLOMERULAR FILTRATION RATE > 60.0 (>51); GLUCOSE, FASTING 113 MG/DL (70-100); POTASSIUM SERUM 4.1 MEQ/L (3.5-5.1); SALICYLATE LEVEL < 1.7 MG/DL (5.0-30.0); SODIUM LEVEL 143 MEQ/L (136-145); TOTAL PROTEIN 6.1 GM/DL (6.4-8.2)
[2018-05-15 05:18] LABS: AMPHETAMINES LEVEL URINE NEGATIVE (NEGATIVE); BARBITURATES URINE NEGATIVE (NEGATIVE); BENZODIAZEPINES URINE NEGATIVE (NEGATIVE); CANNABINOIDS URINE NEGATIVE (NEGATIVE); COCAINE METABOLITE URINE NEGATIVE (NEGATIVE); METHADONE URINE NEGATIVE (NEGATIVE); OPIATES URINE NEGATIVE (NEGATIVE); PHENCYCLIDINE URINE NEGATIVE (NEGATIVE)
[2018-05-15] MEDS: ALBUTEROL SULFATE 2.5 MG/0.5 ML INH NEB SOLN INH (07:28)
[2018-05-15] MEDS: IPRATROPIUM 0.5MG/ALBUTEROL 2.5MG INH SOL UD 3ML (DUONEB)(J7620) NEB (07:28)
[2018-05-15] MEDS: LevoFLOXacin 750 MG TABLET PO (09:00)
[2018-05-15 09:02] LABS: ABG BASE EXCESS 1.5 (-2.0-2.0); ABG HCO3 28.7 MEQ/L (22.0-26.0); ABG O2 SATURATION 93.3 % (95.0-99.0); ABG PARTIAL PRESSURE CO2 57.6 mmHg (35.0-45.0); ABG PARTIAL PRESSURE O2 70.7 mmHg (75.0-100.0); ABG STANDARD HCO3 25.8 MEQ/L (22.0-26.0); ABG TOTAL CO2 30.5 MEQ/L (22.0-29.0); ABG pH (ARTERIAL) 7.316 UNITS (7.350-7.450)
[2018-05-15] MEDS ORDERED: ALBUTEROL SULFATE 2.5 MG/0.5 ML INH NEB SOLN NEB (09:15)
[2018-05-15] MEDS ORDERED: LevoFLOXacin/DEXTROSE 750 MG/150 ML BAG (J1956) As Ordered (09:27)
[2018-05-15] MEDS: LevoFLOXacin IV 750 MG in APPROPRIATE DILUENT 1 EA IV ×2 (09:30→11:10)
[2018-05-15 09:55] LABS: LACTIC ACID SEPSIS PROTOCOL 1.3 MMOL/L (0.4-2.0)
[2018-05-15] MEDS: D5W/0.45% SODIUM CHLORIDE 1,000 ML IV (11:10)
[2018-05-15 12:16] LABS: ABG BASE EXCESS -0.4 (-2.0-2.0); ABG HCO3 26.5 MEQ/L (22.0-26.0); ABG O2 SATURATION 97.1 % (95.0-99.0); ABG PARTIAL PRESSURE CO2 53.6 mmHg (35.0-45.0); ABG STANDARD HCO3 24.2 MEQ/L (22.0-26.0); ABG TOTAL CO2 28.1 MEQ/L (22.0-29.0); ABG pH (ARTERIAL) 7.312 UNITS (7.350-7.450)
[2018-05-15 18:02] LABS: AMPHETAMINES LEVEL URINE NEGATIVE (NEGATIVE); BARBITURATES URINE NEGATIVE (NEGATIVE); BENZODIAZEPINES URINE NEGATIVE (NEGATIVE); CANNABINOIDS URINE NEGATIVE (NEGATIVE); COCAINE METABOLITE URINE NEGATIVE (NEGATIVE); METHADONE URINE NEGATIVE (NEGATIVE); OPIATES URINE POSITIVE (NEGATIVE); PHENCYCLIDINE URINE NEGATIVE (NEGATIVE)
[2018-05-16] MEDS: D5W/0.45% SODIUM CHLORIDE 1,000 ML IV (03:06)
[2018-05-16 05:21] LABS: BASO % 0.2 % (0.0-1.0); EOS # 0.2 10^3/uL (0.0-0.50); EOS % 1.2 % (0.0-3.0); HEMATOCRIT 34.5 % (36.0-47.0); HEMOGLOBIN 11.6 g/dl (12.0-15.5); IMMATURE GRANULOCYTE % 0.3 % (0-3.0); LYMPH # 2.3 10^3/uL (1.5-4.5); LYMPH % 18.8 % (24.0-44.0); MEAN CORPUSCULAR HGB CONC 33.6 g/dl (32.0-36.5); MONO # 0.5 10^3/uL (0.0-0.8); MONO % 4.5 % (0.0-5.0); PLATELET COUNT, AUTOMATED 159 10^3/uL (150-450); RED BLOOD COUNT 3.63 10^6/uL (4.00-5.40); RED CELL DISTRIBUTION WIDTH 12.4 % (11.5-14.5)
[2018-05-16 05:38] LABS: ANION GAP 8 MEQ/L (8-16); BLOOD UREA NITROGEN 7 MG/DL (7-18); CALCIUM LEVEL 8.8 MG/DL (8.5-10.1); CARBON DIOXIDE LEVEL 27 MEQ/L (21-32); CHLORIDE LEVEL 106 MEQ/L (98-107); GLOMERULAR FILTRATION RATE > 60.0 (>51); GLUCOSE, FASTING 98 MG/DL (70-100); POTASSIUM SERUM 3.3 MEQ/L (3.5-5.1); SODIUM LEVEL 141 MEQ/L (136-145)
[2018-05-16] MEDS: NS 1,000 ML IV ×2 (08:49→17:16)
[2018-05-16] MEDS: POTASSIUM CHLORIDE 10 MEQ SR TABLET PO (08:49)
[2018-05-16] MEDS: LevoFLOXacin IV 750 MG in APPROPRIATE DILUENT 1 EA IV (08:49)
[2018-05-16] MEDS ORDERED: ALBUTEROL 90 MCG/ACT 8GM HFA INHALER INH (14:15)
[2018-05-16 14:55] LABS: C REACTIVE PROTEIN QUANTITATIV 6.41 MG/DL (0.00-0.30)
[2018-05-16 15:00] LABS: LACTIC ACID SEPSIS PROTOCOL 1.3 MMOL/L (0.4-2.0)
[2018-05-16 15:02] LABS: LITHIUM LEVEL < 0.20 MEQ/L (0.60-1.20)
[2018-05-16] MEDS: NS 500 ML IV (15:16)
[2018-05-16] MEDS: TAMOXIFEN CITRATE 10 MG TAB PO (17:15)
[2018-05-17 04:32] LABS: BASO % 0.1 % (0.0-1.0); EOS # 0.3 10^3/uL (0.0-0.50); EOS % 2.5 % (0.0-3.0); HEMATOCRIT 33.8 % (36.0-47.0); HEMOGLOBIN 11.4 g/dl (12.0-15.5); IMMATURE GRANULOCYTE % 0.3 % (0-3.0); LYMPH # 2.2 10^3/uL (1.5-4.5); LYMPH % 21.3 % (24.0-44.0); MEAN CORPUSCULAR HEMOGLOBIN 32.4 pg (27.0-33.0); MEAN CORPUSCULAR HGB CONC 33.7 g/dl (32.0-36.5); MONO # 0.6 10^3/uL (0.0-0.8); MONO % 5.5 % (0.0-5.0); NEUTROPHILS # 7.3 10^3/uL (1.8-7.7); NEUTROPHILS % 70.3 % (36.0-66.0); PLATELET COUNT, AUTOMATED 142 10^3/uL (150-450); RED BLOOD COUNT 3.52 10^6/uL (4.00-5.40); RED CELL DISTRIBUTION WIDTH 12.8 % (11.5-14.5); WHITE BLOOD COUNT 10.4 10^3/uL (4.0-10.0)
[2018-05-17 04:52] LABS: ANION GAP 6 MEQ/L (8-16); BLOOD UREA NITROGEN 7 MG/DL (7-18); CALCIUM LEVEL 8.6 MG/DL (8.5-10.1); CARBON DIOXIDE LEVEL 26 MEQ/L (21-32); CHLORIDE LEVEL 110 MEQ/L (98-107); CREATININE FOR GFR 0.46 MG/DL (0.55-1.30); GLOMERULAR FILTRATION RATE > 60.0 (>51); GLUCOSE, FASTING 91 MG/DL (70-100); POTASSIUM SERUM 3.7 MEQ/L (3.5-5.1); SODIUM LEVEL 142 MEQ/L (136-145)
[2018-05-17] MEDS: TAMOXIFEN CITRATE 10 MG TAB PO (08:15)
[2018-05-17] MEDS: ENOXAPARIN 40 MG/0.4 ML SYRINGE (J1650) SC (09:14)
[2018-05-17] MEDS: LevoFLOXacin IV 750 MG in APPROPRIATE DILUENT 1 EA IV (10:36)
[2018-05-17] MEDS: METOPROLOL TART 50 MG TAB PO (18:47)
[2018-05-18] MEDS ORDERED: METOPROLOL TART 50 MG TAB PO (09:00)
== END 2018-05-17 20:40 | DRG 917 ==
LOC: M ED 03:02 → M ED INP 09:11 → M ICU 10:36
DX: T42.4X2A Poisoning by benzodiazepines, intentional self-harm, initial encounter (principal); R40.20 Unspecified coma; J69.0 Pneumonitis due to inhalation of food and vomit; G93.41 Metabolic encephalopathy; T14.91XA Suicide attempt, initial encounter; T44.6X2A Poisoning by alpha-adrenoreceptor antagonists, intentional self-harm, initial encounter; T47.9 Poisoning by, adverse effect of and underdosing of unspecified agents primarily affecting the gastrointestinal system; I10 Essential (primary) hypertension; F40.10 Social phobia, unspecified; F43.10 Post-traumatic stress disorder, unspecified; E04.2 Nontoxic multinodular goiter; E66.9 Obesity, unspecified; F32.9 Major depressive disorder, single episode, unspecified; M79.7 Fibromyalgia; K21.9 Gastro-esophageal reflux disease without esophagitis; Z79.810 Long term (current) use of selective estrogen receptor modulators (SERMs); Z91.5 Personal history of self-harm; Z90.710 Acquired absence of both cervix and uterus; Z88.0 Allergy status to penicillin; Z79.51 Long term (current) use of inhaled steroids; Z85.3 Personal history of malignant neoplasm of breast; Z79.899 Other long term (current) drug therapy; Y92.019 Unspecified place in single-family (private) house as the place of occurrence of the external cause

== ENCOUNTER 2018-05-17 20:50 | Inpatient (IN) | payer MEDICARE, MEDICAID ==
[2018-05-17] MEDS ORDERED: MOM 30ML SUSPENSION UDC PO (23:45)
[2018-05-18] MEDS: diphenhydrAMINE 25 MG CAP PO (09:59)
[2018-05-18 10:02] LABS: BASO % 0.2 % (0.0-1.0); EOS # 0.3 10^3/uL (0.0-0.50); EOS % 3.7 % (0.0-3.0); HEMATOCRIT 35.6 % (36.0-47.0); IMMATURE GRANULOCYTE % 0.2 % (0-3.0); LYMPH # 2.3 10^3/uL (1.5-4.5); MEAN CORPUSCULAR HEMOGLOBIN 32.2 pg (27.0-33.0); MEAN CORPUSCULAR HGB CONC 33.7 g/dl (32.0-36.5); MEAN CORPUSCULAR VOLUME 95.4 fl (80.0-96.0); MONO # 0.4 10^3/uL (0.0-0.8); MONO % 5.2 % (0.0-5.0); NEUTROPHILS # 5.3 10^3/uL (1.8-7.7); NEUTROPHILS % 63.7 % (36.0-66.0); PLATELET COUNT, AUTOMATED 157 10^3/uL (150-450); RED BLOOD COUNT 3.73 10^6/uL (4.00-5.40); RED CELL DISTRIBUTION WIDTH 13.2 % (11.5-14.5); WHITE BLOOD COUNT 8.4 10^3/uL (4.0-10.0)
[2018-05-18 10:44] LABS: ALBUMIN 3.2 GM/DL (3.2-5.2); ALBUMIN/GLOBULIN RATIO 1.07 (1.00-1.93); ALKALINE PHOSPHATASE 107 U/L (45-117); ALT/SGPT 15 U/L (12-78); ANION GAP 8 MEQ/L (8-16); AST/SGOT 13 U/L (7-37); BILIRUBIN,TOTAL 0.6 MG/DL (0.2-1.0); BLOOD UREA NITROGEN 8 MG/DL (7-18); CALCIUM LEVEL 9.5 MG/DL (8.5-10.1); CARBON DIOXIDE LEVEL 27 MEQ/L (21-32); CHLORIDE LEVEL 106 MEQ/L (98-107); CREATININE FOR GFR 0.51 MG/DL (0.55-1.30); GLOMERULAR FILTRATION RATE > 60.0 (>51); GLUCOSE, FASTING 114 MG/DL (70-100); POTASSIUM SERUM 3.4 MEQ/L (3.5-5.1); SODIUM LEVEL 141 MEQ/L (136-145); TOTAL PROTEIN 6.2 GM/DL (6.4-8.2)
[2018-05-18] MEDS: DULoxetine 30 MG CAP (CYMBALTA) PO (15:45)
[2018-05-18] MEDS: PRAZOSIN 1 MG CAP PO (20:43)
[2018-05-18] MEDS: MAALOX 30 ML SUSP *UDC PO (22:34)
[2018-05-18] MEDS: POTASSIUM CHLORIDE 10% LIQ 20 MEQ/15 ML UDC PO (22:34)
[2018-05-18] MEDS ORDERED: ALBUTEROL 90 MCG/ACT 8GM HFA INHALER INH (23:00)
[2018-05-18] MEDS: METOPROLOL TART 50 MG TAB PO (23:39)
[2018-05-18] MEDS: FLUTICASONE PROP 0.05% NASAL SPRAY 16 GM (FLONASE) NARES (23:39)
[2018-05-19] MEDS: LevoFLOXacin 750 MG TABLET PO (06:05)
[2018-05-19 07:38] LABS: ANION GAP 8 MEQ/L (8-16); BLOOD UREA NITROGEN 8 MG/DL (7-18); CALCIUM LEVEL 9.1 MG/DL (8.5-10.1); CARBON DIOXIDE LEVEL 24 MEQ/L (21-32); CHLORIDE LEVEL 110 MEQ/L (98-107); CREATININE FOR GFR 0.46 MG/DL (0.55-1.30); GLOMERULAR FILTRATION RATE > 60.0 (>51); GLUCOSE, FASTING 116 MG/DL (70-100); POTASSIUM SERUM 4.1 MEQ/L (3.5-5.1); SODIUM LEVEL 142 MEQ/L (136-145)
[2018-05-19] MEDS: TAMOXIFEN CITRATE 10 MG TAB PO (09:00)
[2018-05-19] MEDS: diphenhydrAMINE 25 MG CAP PO (09:14)
[2018-05-19] MEDS: OMEPRAZOLE 20 MG CAP PO (09:14)
[2018-05-19] MEDS: BACITRACIN OINT 30GM TOP ×2 (09:14→20:38)
[2018-05-19] MEDS: METOPROLOL TART 50 MG TAB PO ×2 (09:15→20:37)
[2018-05-19] MEDS: FLUTICASONE PROP 0.05% NASAL SPRAY 16 GM (FLONASE) NARES ×2 (09:15→20:38)
[2018-05-19] MEDS: PRAZOSIN 1 MG CAP PO (20:37)
[2018-05-19] MEDS: traZODone 50 MG TAB PO (22:35)
[2018-05-20] MEDS: ACETAMINOPHEN TAB 650MG DOSE (2X325MG) PO ×2 (03:46→21:53)
[2018-05-20] MEDS: LevoFLOXacin 750 MG TABLET PO (06:15)
[2018-05-20] MEDS: OMEPRAZOLE 20 MG CAP PO (07:56)
[2018-05-20] MEDS: FLUTICASONE PROP 0.05% NASAL SPRAY 16 GM (FLONASE) NARES ×2 (07:56→20:31)
[2018-05-20] MEDS: OLANZapine ORAL DISINTEGRATING TAB 5MG PO (07:57)
[2018-05-20] MEDS: METOPROLOL TART 50 MG TAB PO ×2 (07:58→20:30)
[2018-05-20] MEDS: TAMOXIFEN CITRATE 10 MG TAB PO (07:58)
[2018-05-20] MEDS: diphenhydrAMINE 25 MG CAP PO (07:58)
[2018-05-20] MEDS: BACITRACIN OINT 30GM TOP ×2 (07:58→20:26)
[2018-05-20] MEDS: LOSARTAN 50 MG TAB PO ×2 (10:07→20:27)
[2018-05-20] MEDS: DULoxetine 30 MG CAP (CYMBALTA) PO (13:10)
[2018-05-20] MEDS: traZODone 50 MG TAB PO (20:27)
[2018-05-20] MEDS: PRAZOSIN 1 MG CAP PO (20:31)
[2018-05-21] MEDS: LevoFLOXacin 750 MG TABLET PO (06:09)
[2018-05-21] MEDS: LOSARTAN 50 MG TAB PO ×2 (08:13→20:36)
[2018-05-21] MEDS: OMEPRAZOLE 20 MG CAP PO (08:13)
[2018-05-21] MEDS: DULoxetine 30 MG CAP (CYMBALTA) PO (08:13)
[2018-05-21] MEDS: METOPROLOL TART 50 MG TAB PO ×2 (08:13→20:39)
[2018-05-21] MEDS: FLUTICASONE PROP 0.05% NASAL SPRAY 16 GM (FLONASE) NARES ×2 (08:13→21:00)
[2018-05-21] MEDS: BACITRACIN OINT 30GM TOP ×2 (08:14→20:37)
[2018-05-21] MEDS: TAMOXIFEN CITRATE 10 MG TAB PO (08:16)
[2018-05-21] MEDS: traZODone 50 MG TAB PO (20:36)
[2018-05-21] MEDS: PRAZOSIN 1 MG CAP PO (20:37)
[2018-05-22] MEDS: LevoFLOXacin 750 MG TABLET PO (06:02)
[2018-05-22] MEDS: TAMOXIFEN CITRATE 10 MG TAB PO (08:19)
[2018-05-22] MEDS: FLUTICASONE PROP 0.05% NASAL SPRAY 16 GM (FLONASE) NARES ×2 (08:19→20:58)
[2018-05-22] MEDS: METOPROLOL TART 50 MG TAB PO ×2 (08:25→20:59)
[2018-05-22] MEDS: BACITRACIN OINT 30GM TOP ×2 (08:25→21:03)
[2018-05-22] MEDS: DULoxetine 30 MG CAP (CYMBALTA) PO (08:26)
[2018-05-22] MEDS: OMEPRAZOLE 20 MG CAP PO (08:26)
[2018-05-22] MEDS: LOSARTAN 50 MG TAB PO ×2 (08:26→20:59)
[2018-05-22] MEDS: ACETAMINOPHEN TAB 650MG DOSE (2X325MG) PO (17:06)
[2018-05-22] MEDS: PRAZOSIN 1 MG CAP PO (21:00)
[2018-05-23] MEDS: LevoFLOXacin 750 MG TABLET PO (06:10)
[2018-05-23] MEDS: FLUTICASONE PROP 0.05% NASAL SPRAY 16 GM (FLONASE) NARES ×2 (08:05→20:44)
[2018-05-23] MEDS: BACITRACIN OINT 30GM TOP ×2 (08:05→20:47)
[2018-05-23] MEDS: TAMOXIFEN CITRATE 10 MG TAB PO (08:05)
[2018-05-23] MEDS: DULoxetine 30 MG CAP (CYMBALTA) PO (08:08)
[2018-05-23] MEDS: OMEPRAZOLE 20 MG CAP PO (08:08)
[2018-05-23] MEDS: METOPROLOL TART 50 MG TAB PO ×2 (08:09→20:45)
[2018-05-23] MEDS: LOSARTAN 50 MG TAB PO ×2 (08:09→20:47)
[2018-05-23] MEDS: PRAZOSIN 1 MG CAP PO (20:45)
[2018-05-24] MEDS: LevoFLOXacin 750 MG TABLET PO (06:12)
[2018-05-24] MEDS: DULoxetine 30 MG CAP (CYMBALTA) PO (08:08)
[2018-05-24] MEDS: LOSARTAN 50 MG TAB PO (08:08)
[2018-05-24] MEDS: OMEPRAZOLE 20 MG CAP PO (08:08)
[2018-05-24] MEDS: METOPROLOL TART 50 MG TAB PO (08:09)
[2018-05-24] MEDS: FLUTICASONE PROP 0.05% NASAL SPRAY 16 GM (FLONASE) NARES (08:10)
[2018-05-24] MEDS: TAMOXIFEN CITRATE 10 MG TAB PO (08:11)
[2018-05-24] MEDS: BACITRACIN OINT 30GM TOP (08:11)
== END 2018-05-24 14:40 | disposition home or self-care (01) | DRG 881 ==
LOC: M PSY 20:50
DX: F32.9 Major depressive disorder, single episode, unspecified (principal); J69.0 Pneumonitis due to inhalation of food and vomit; I47.1 Supraventricular tachycardia; F43.10 Post-traumatic stress disorder, unspecified; S81.812A Laceration without foreign body, left lower leg, initial encounter; S81.811A Laceration without foreign body, right lower leg, initial encounter; E87.6 Hypokalemia; K21.9 Gastro-esophageal reflux disease without esophagitis; E04.2 Nontoxic multinodular goiter; I10 Essential (primary) hypertension; K58.9 Irritable bowel syndrome, unspecified; F41.9 Anxiety disorder, unspecified; Z91.5 Personal history of self-harm; Z79.810 Long term (current) use of selective estrogen receptor modulators (SERMs); Z88.0 Allergy status to penicillin; Z79.51 Long term (current) use of inhaled steroids; Z79.899 Other long term (current) drug therapy; Z85.3 Personal history of malignant neoplasm of breast; Z90.710 Acquired absence of both cervix and uterus; X78.1XXA Intentional self-harm by knife, initial encounter; Y93.89 Activity, other specified; Y92.009 Unspecified place in unspecified non-institutional (private) residence as the place of occurrence of the external cause

== ENCOUNTER → 2018-10-24 | Outpatient (CLI) | payer MEDICARE, MEDICAID ==
[~2018-10-24] MED LIST changes: +ALBU17IN INH; +CLON1TAB8 PO; +CYCL10TA PO; +CYMB1CAP4 PO; +DULO1CAP PO; +DULO30CA9 PO; -E-Z-GAS II EFFERVESCENT PACKET (SODIUM BICARB./CITRIC ACID/SIMETHICONE) As Ordered; -E-Z-HD 98% w/w 340GM SUSP BTL As Ordered; -E-Z-PAQUE 96% w/w SUSP 176GM BTL As Ordered; +ESOM0.1C PO; +FLUT1SPR2; +FLUTISP NARES; +KETO10TAB PO; +KLON1TAB PO; +LEVA750T7 PO; +LITH300T2 PO; +LOSA100T8 PO; +LOSARTAN/HCTZ PO; +METO50TA7 PO; +MINI1CAP PO; +NAPR-837 PO; +NEXI40CA PO; +ONDA4TAB6 PO; +PERC5TAB12 PO; +PRAZ2CAP PO; +PRAZ5CAP PO; +SERT-155; +TAMO20TA8 PO; +TRAZ1TAB14 PO; +TRAZO50TA PO; +VALS1TAB67; +VENTAER INH
--- NOTE | 2018-10-24 13:11 | REP ---
PA and lateral chest: Comparison is 05/19/2018. The previous bibasilar infiltrates have resolved. There is a small parenchymal scar inferiorly in the left lung. Lung nice otherwise clear. Cardiac size is normal. The kelton, mediastinum, and skeletal structures are unremarkable. Impression: Wall There are no acute cardiopulmonary findings. There is a small parenchymal scar inferiorly in the left lung. Electronically Signed by Augusto Delgado MD 10/24/2018 01:02 P
== END ==
LOC: M LRY 11:16
PROVIDERS: ATTEND Nurse Practitioner Family
DX: J98.4 Other disorders of lung (principal); R05 Cough
CPT/HCPCS: 71046; G0463

== ENCOUNTER → 2019-01-04 | Outpatient (REF) | payer MEDICARE, MEDICAID ==
[~2019-01-04] MED LIST changes: +TRAZ1TAB10 PO; -TRAZO50TA PO
[2019-01-04 19:19] LABS: BLOOD UREA NITROGEN 16 MG/DL (7-18); CALCIUM LEVEL 9.3 MG/DL (8.5-10.1); CARBON DIOXIDE LEVEL 28 MEQ/L (21-32); CHLORIDE LEVEL 109 MEQ/L (98-107); CHOLESTEROL LEVEL 211 MG/DL (<200); CHOLESTEROL RISK RATIO 4.489 (<5); CREATININE FOR GFR 0.53 MG/DL (0.55-1.30); FREE T4 0.87 NG/DL (0.76-1.46); GLOMERULAR FILTRATION RATE > 60.0 (>51); GLUCOSE, FASTING 93 MG/DL (70-100); HDL CHOLESTEROL 47 MG/DL (>40); LDL CHOLESTEROL 139 MG/DL (<100); NON-HDL-C 164 MG/DL; POTASSIUM SERUM 4.6 MEQ/L (3.5-5.1); SODIUM LEVEL 143 MEQ/L (136-145); TRIGLYCERIDES LEVEL 126 MG/DL (<150)
[2019-01-06 10:49] LABS: HEPATITIS B SURFACE ANTIBODY NEGATIVE (POSITIVE)
[2019-01-06 11:00] LABS: RUBELLA IgG QUALITATIVE SUSCEPTIBLE (IMMUNE)
[2019-01-07 08:06] LABS: RUBEOLA IgG ANTIBODY <25.0 AU/mL (Immune >29.9)
== END ==
LOC: M SFHCLERA 09:04
PROVIDERS: ATTEND Family Medicine
DX: Z00.00 Encounter for general adult medical examination without abnormal findings (principal); E04.2 Nontoxic multinodular goiter; Z01.84 Encounter for antibody response examination; E78.00 Pure hypercholesterolemia, unspecified

== ENCOUNTER → 2019-02-04 | Outpatient (REF) | payer MEDICARE, MEDICAID ==
[~2019-02-04] MED LIST changes: +ALL10TAB3 PO; -DULO1CAP PO; +DULO1CAP4 PO; +IBUP-1022 PO; -SERT-155; +SERT50TA29
[2019-02-04 11:45] LABS: BASO % 0.3 % (0.0-1.0); EOS # 0.2 10^3/uL (0.0-0.50); HEMATOCRIT 38.6 % (36.0-47.0); HEMOGLOBIN 12.8 g/dl (12.0-15.5); LYMPH # 2.5 10^3/uL (1.5-4.5); LYMPH % 27.6 % (24.0-44.0); MEAN CORPUSCULAR HEMOGLOBIN 31.8 pg (27.0-33.0); MEAN CORPUSCULAR HGB CONC 33.2 g/dl (32.0-36.5); MONO # 0.5 10^3/uL (0.0-0.8); MONO % 5.7 % (0.0-5.0); NEUTROPHILS # 5.8 10^3/uL (1.8-7.7); NEUTROPHILS % 64.1 % (36.0-66.0); PLATELET COUNT, AUTOMATED 186 10^3/uL (150-450); RED BLOOD COUNT 4.02 10^6/uL (4.00-5.40)
[2019-02-04 12:55] LABS: ALBUMIN 3.7 GM/DL (3.2-5.2); ALT/SGPT 20 U/L (12-78); BILIRUBIN,TOTAL 0.4 MG/DL (0.2-1.0); BLOOD UREA NITROGEN 12 MG/DL (7-18); CALCIUM LEVEL 9.9 MG/DL (8.5-10.1); CARBON DIOXIDE LEVEL 30 MEQ/L (21-32); CHLORIDE LEVEL 110 MEQ/L (98-107); GLOMERULAR FILTRATION RATE > 60.0 (>51); GLUCOSE, FASTING 103 MG/DL (70-100); POTASSIUM SERUM 4.9 MEQ/L (3.5-5.1); SODIUM LEVEL 143 MEQ/L (136-145); TOTAL PROTEIN 6.8 GM/DL (6.4-8.2)
== END ==
LOC: M SFHCLERA 10:01
PROVIDERS: ATTEND Family Medicine
DX: G43.009 Migraine without aura, not intractable, without status migrainosus (principal)
CPT/HCPCS: 80053; 85025; G0463

== ENCOUNTER → 2019-02-19 | Outpatient (CLI) | payer MEDICARE, MEDICAID ==
[~2019-02-19] MED LIST changes: -ALL10TAB3 PO; -IBUP-1022 PO; +SERT-155; -SERT50TA29
--- NOTE | 2019-02-19 10:32 | PFTRPT ---
Site: [facility], [address] [place], [address] ID: [id number] Name: DASHA TERRY Visit Date: 02/19/2019 Second ID: [id number] Referring Doctor: Areli Thorpe MD Reviewing Doctor: Cali Colon MD Cart Driver: Jyothi SEPULVEDA RRT Age: 53 : 1965 Sex: Female Race: Height: 63.00 Inches Weight: 160.00 Lbs BSA: 1.76 Order IDs: [id number] Requested Test(s): <RESP-PFT.DLCO> Diagnosis: R05 test meet the ATS standards for acceptability and repeatability. Pt was given four puffs of albuterol for postbronchodilator. Review Status: Not Reviewed Pre-Bronch Post-Bronch Pred Actual %Pred Actual %Chng SPIROMETRY FVC (L) 3.39 2.37 70 2.50 5 FEV1 (L) 2.68 2.03 75 2.16 6 FEV1/FVC (%) 80 86 106 86 FEF 25% (L/sec) 5.08 5.10 100 4.48 -12 FEF 50% (L/sec) 3.88 3.24 83 4.04 24 FEF 75% (L/sec) 1.41 1.18 83 1.44 21 FEF 25-75% (L/sec) 2.65 2.38 89 3.15 32 FEF Max (L/sec) 6.53 5.58 85 4.86 -12 FIVC (L) 2.18 2.32 6 FIF 50% (L/sec) 3.63 2.43 66 3.48 43 FIF Max (L/sec) 3.02 3.49 15 MVV (L/min) 94 58 61 Expiratory Time (sec) 6.86 4.35 -36 Back Extrap Vol (L) 0.07 0.07 6 Time To FEFmax (sec) 0.077 0.100 30 LUNG VOLUMES SVC (L) 3.13 2.39 76 IC (L) 2.16 2.24 103 ERV (L) 0.97 0.15 15 TGV (L) 2.74 2.28 83 RV (Pleth) (L) 1.77 2.13 120 TLC (Pleth) (L) 4.90 4.52 92 RV/TLC (Pleth) (%) 36 47 130 DIFFUSION DLCOunc (ml/min/mmHg) 22.17 18.17 81 DL/VA (ml/min/mmHg/L) 4.52 4.88 107 VA (L) 4.90 3.72 75 BHT (sec) 10.41 IVC (L) 2.36 TLC (SB) (L) 3.87 AIRWAYS RESISTANCE Raw (cmH2O/L/s) 1.86 1.69 91 Gaw (L/s/cmH2O) 1.03 0.60 58 sRaw (cmH2O*s) 4.76 3.90 81 sGaw (1/cmH2O*s) 0.20 0.26 129
--- NOTE | 2019-02-19 10:39 | REPMRS ---
Patient History The patient states she had a clinical breast exam in September 2018. No known family history of cancer. Patient has lost 20 pounds since last mammo. Not sure why. 3D TOMOSYNTHESIS WAS PERFORMED. Digital Mammo Screening Bilat: February 19, 2019 - Exam #: [id number] Bilateral CC and MLO view(s) were taken. Technologist: Kaitlin Jack, Technologist Prior study comparison: December 27, 2017, bilateral digital mammo screening bilat performed at [facility]. FINDINGS: The breast tissue is heterogeneously dense. This may lower the sensitivity of mammography. There has been no change in the appearance of the mammogram from the prior studies. There is a moderate amount of residual fibroglandular tissue which is fairly symmetric. There is no interval development of dominant mass, areas of architectural distortion, or clustered microcalcification typical of malignancy. Assessment: BI-RADS/ACR category 1 mammogram. Negative Mammogram. Recommendation Routine screening mammogram in 1 year (for women over age 40). This mammogram was interpreted with the aid of an FDA-approved computer-aided dectection system. Electronically Signed By: Augusto Rios MD 02/19/19 1038
--- NOTE | 2019-02-19 13:28 | REP ---
THYROID ULTRASOUND: Real-time sonographic evaluation of the thyroid performed. Both lobes are mildly enlarged and diffusely heterogeneous, right lobe measuring 6.1 x 2.0 x 1.6 cm and left lobe 5.7 x 2.0 x 1.4 cm. Multiple nodules are again seen bilaterally. In the right upper pole a hypoechoic nodule measures 1.0 x 1.3 x 0.8 cm unchanged since the prior study of 04/29/2018. A nodule in the right lower pole measures 2.7 x 2.0 x 1.8 cm also essentially unchanged. A nodule in the isthmus measures 1.9 x 1.3 x 1.9 cm, unchanged. Nodule in the left upper pole measures 1.3 x 1.0 x 0.9 cm, unchanged. A nodule in the left lower pole measures 1.3 x 0.7 x 0.7 cm, unchanged. There is an adjacent smaller subcentimeter nodule. IMPRESSION: Multiple bilateral nodules and mild enlargement of both lobes of the thyroid. Findings are essentially stable compared to the study of 04/29/2018. Electronically Signed by Augusto Rios MD 02/20/2019 07:41 A
== END ==
LOC: M RAD 08:44
PROVIDERS: ATTEND Family Medicine
DX: Z12.31 Encounter for screening mammogram for malignant neoplasm of breast (principal); E04.2 Nontoxic multinodular goiter; R05 Cough

== ENCOUNTER 2019-03-12 18:52 | Emergency (ER) | payer MEDICARE, MEDICAID ==
[~2019-03-12] VITALS: Ht 160 cm; Wt 72.7 kg
[~2019-03-12 18:52] MED LIST changes: -ALL10TAB3 PO; -IBUP-1022 PO
[2019-03-12] MEDS ORDERED: ALL10TAB3 PO (19:04)
[2019-03-12] MEDS ORDERED: NEXI40CA PO (19:04)
[2019-03-12] MEDS ORDERED: ONDANSETRON 4MG/2ML VIAL (J2405) IV ONE (19:15)
[2019-03-12] MEDS ORDERED: KETOROLAC 30 MG/ML VIAL (J1885) IV ONE (19:15)
[2019-03-12] MEDS ORDERED: NS 1,000 ML IV ONE (19:15)
[2019-03-12 19:40] LABS: BASO % 0.2 % (0.0-1.0); EOS # 0.2 10^3/uL (0.0-0.50); EOS % 2.1 % (0.0-3.0); HEMATOCRIT 36.8 % (36.0-47.0); HEMOGLOBIN 12.6 g/dl (12.0-15.5); LYMPH # 2.8 10^3/uL (1.5-4.5); LYMPH % 34.8 % (24.0-44.0); MEAN CORPUSCULAR HGB CONC 34.2 g/dl (32.0-36.5); MEAN CORPUSCULAR VOLUME 93.4 fl (80.0-96.0); MONO # 0.6 10^3/uL (0.0-0.8); MONO % 6.8 % (0.0-5.0); NEUTROPHILS # 4.5 10^3/uL (1.8-7.7); NEUTROPHILS % 55.7 % (36.0-66.0); PLATELET COUNT, AUTOMATED 194 10^3/uL (150-450); RED BLOOD COUNT 3.94 10^6/uL (4.00-5.40); WHITE BLOOD COUNT 8.1 10^3/uL (4.0-10.0)
[2019-03-12 20:49] LABS: ALBUMIN 3.2 GM/DL (3.2-5.2); ALT/SGPT 19 U/L (12-78); BILIRUBIN,DIRECT < 0.1 MG/DL (0.0-0.2); BILIRUBIN,TOTAL 0.4 MG/DL (0.2-1.0); BLOOD UREA NITROGEN 12 MG/DL (7-18); CALCIUM LEVEL 9.3 MG/DL (8.5-10.1); CARBON DIOXIDE LEVEL 28 MEQ/L (21-32); CHLORIDE LEVEL 112 MEQ/L (98-107); CREATININE FOR GFR 0.51 MG/DL (0.55-1.30); GLOMERULAR FILTRATION RATE > 60.0 (>51); GLUCOSE, FASTING 89 MG/DL (70-100); LIPASE 85 U/L (73-393); POTASSIUM SERUM 4.5 MEQ/L (3.5-5.1); SODIUM LEVEL 143 MEQ/L (136-145); TOTAL PROTEIN 6.1 GM/DL (6.4-8.2)
--- NOTE | 2019-03-12 21:09 | REPVR ---
EXAM: CT Abdomen and Pelvis Without Contrast EXAM DATE/TIME: 03/12/2019 8:27 PM CLINICAL HISTORY: 53 years old, female; Abdominal pain; Flank; Right; Additional info: Right flank pain/colic TECHNIQUE: Imaging protocol: Computed tomography of the abdomen and pelvis without contrast. Radiation optimization: All CT scans at this facility use at least one of these dose optimization techniques: automated exposure control; mA and/or kV adjustment per patient size (includes targeted exams where dose is matched to clinical indication); or iterative reconstruction. COMPARISON: CT ABD PELVIS W/O CONTRAST 10/14/2018 3:02 PM FINDINGS: Liver: No discreet mass. Gallbladder and bile ducts: No calcified stones. No ductal dilation. Pancreas: No ductal dilation. Spleen: No splenomegaly. Adrenals: No mass. Kidneys and ureters: No hydroureteronephrosis or evidence of obstructive uropathy. Tiny nonobstructing left renal upper pole calculus again noted. Stomach and bowel: No evidence of obstruction. Appendix: No evidence of appendicitis. Intraperitoneal space: No free air. No significant fluid collection. Vasculature: Mild aortoiliac atherosclerotic changes. Splenic arterial calcifications noted. Lymph nodes: No enlarged lymph nodes. Bladder: Unremarkable as visualized. Reproductive: Unremarkable as visualized. Bones/joints: No acute fractures or dislocations. Soft tissues: Unremarkable. IMPRESSION: No hydroureteronephrosis or evidence of obstructive uropathy. Tiny nonobstructing left renal upper pole calculus appears relatively unchanged. No bowel obstruction, free intraperitoneal air/fluid or sizable inflammatory collections noted. Electronically signed by: Carter Ross On 03/12/2019 21:09:04 PM
[2019-03-12] MEDS ORDERED: ONDA4TAB6 PO (21:46)
[2019-03-12] MEDS ORDERED: IBUP-1022 PO (21:46)
[2019-03-12 21:49] VITALS: BP 128/69
== END 2019-03-12 21:54 | disposition home or self-care (01) ==
LOC: M ED 18:52
DX: R10.9 Unspecified abdominal pain (principal); Z72.0 Tobacco use; N20.0 Calculus of kidney; E78.00 Pure hypercholesterolemia, unspecified; I10 Essential (primary) hypertension; J45.909 Unspecified asthma, uncomplicated; Z87.01 Personal history of pneumonia (recurrent); K21.9 Gastro-esophageal reflux disease without esophagitis; Z85.3 Personal history of malignant neoplasm of breast; E04.2 Nontoxic multinodular goiter; F41.9 Anxiety disorder, unspecified; F31.9 Bipolar disorder, unspecified; Z79.899 Other long term (current) drug therapy; Z88.0 Allergy status to penicillin
CPT/HCPCS: 74176; 80048; 80076; 81001; 83690; 85025; 87086; 96361; 96374; 96375; 99284; J1885; J2405

== ENCOUNTER → 2019-03-12 | Outpatient (REF) | payer OTHER ==
[~2019-03-12] MED LIST changes: +ALL10TAB3 PO; +IBUP-1022 PO
== END ==
LOC: M SFHCLERA 17:07
PROVIDERS: ATTEND Nurse Practitioner Family
DX: Z53.9 Procedure and treatment not carried out, unspecified reason (principal); Z02.1 Encounter for pre-employment examination

== ENCOUNTER → 2019-10-24 | Outpatient (REF) | payer MEDICARE, MEDICAID ==
[~2019-10-24] MED LIST changes: +ALL10TAB3 PO; +IBUP-1022 PO; -SERT-155; +SERT50TA29
[2019-10-24 16:31] LABS: APPEARANCE, URINE CLOUDY (CLEAR); BACTERIA, URINE AUTO 1+ (NEGATIVE); BILIRUBIN, URINE AUTO NEGATIVE (NEGATIVE); BLOOD, URINE BLOOD NEGATIVE (NEGATIVE); COLOR, URINE YELLOW (YELLOW); GLUCOSE, URINE (UA) AUTO NEGATIVE (NEGATIVE); KETONE, URINE AUTO NEGATIVE (NEGATIVE); LEUKOCYTE ESTERASE, URINE AUTO 3+ (NEGATIVE); MUCUS, URINE SMALL (NEGATIVE); NITRITE, URINE AUTO NEGATIVE (NEGATIVE); PROTEIN, URINE AUTO NEGATIVE (NEGATIVE); RBC, URINE AUTO 29 /HPF (0-3); SQUAMOUS EPITHELIAL CELL UR AU 3 /HPF (0-6); WBC, URINE AUTO 16 /HPF (0-3)
[2019-10-24 17:55] LABS: CHLAMYDIA DNA AMPLIFICATION NEGATIVE (NEGATIVE); GC DNA AMPLIFICATION NEGATIVE (NEGATIVE)
== END ==
LOC: M LAB REF 16:08
PROVIDERS: ATTEND Physician Assistant
DX: N39.0 Urinary tract infection, site not specified (principal); Z11.3 Encounter for screening for infections with a predominantly sexual mode of transmission

== ENCOUNTER → 2020-01-14 | Outpatient (CLI) | payer MEDICARE, MEDICAID ==
[~2020-01-14] MED LIST changes: +CYCL-707 PO; -CYCL10TA PO
[2020-01-14 13:33] LABS: BASO % 0.1 % (0.0-1.0); EOS # 0.2 10^3/uL (0.0-0.5); EOS % 2.4 % (0.0-3.0); HEMATOCRIT 39.8 % (36.0-47.0); HEMOGLOBIN 13.2 g/dl (12.0-15.5); LYMPH # 1.8 10^3/uL (1.5-5.0); LYMPH % 25.8 % (24.0-44.0); MEAN CORPUSCULAR HEMOGLOBIN 32.7 pg (27.0-33.0); MEAN CORPUSCULAR HGB CONC 33.2 g/dl (32.0-36.5); MEAN CORPUSCULAR VOLUME 98.5 fl (80.0-96.0); MONO # 0.5 10^3/uL (0.0-0.8); MONO % 7.5 % (0.0-5.0); NEUTROPHILS # 4.4 10^3/uL (1.5-8.5); NEUTROPHILS % 63.9 % (36.0-66.0); PLATELET COUNT, AUTOMATED 136 10^3/uL (150-450); RED BLOOD COUNT 4.04 10^6/uL (4.00-5.40)
[2020-01-14 13:59] LABS: ALBUMIN 3.4 GM/DL (3.2-5.2); ALT/SGPT 305 U/L (12-78); BILIRUBIN,DIRECT 0.2 MG/DL (0.0-0.2); BILIRUBIN,TOTAL 0.5 MG/DL (0.2-1.0); BLOOD UREA NITROGEN 10 MG/DL (7-18); CALCIUM LEVEL 9.3 MG/DL (8.5-10.1); CARBON DIOXIDE LEVEL 28 MEQ/L (21-32); CHLORIDE LEVEL 109 MEQ/L (98-107); CHOLESTEROL LEVEL 230 MG/DL (<200); CHOLESTEROL RISK RATIO 4.181 (<5); CREATININE FOR GFR 0.59 MG/DL (0.55-1.30); GLOMERULAR FILTRATION RATE > 60.0 (>51); GLUCOSE, FASTING 88 MG/DL (70-100); HDL CHOLESTEROL 55 MG/DL (>40); LDL CHOLESTEROL 136 MG/DL (<100); NON-HDL-C 175 MG/DL; SODIUM LEVEL 142 MEQ/L (136-145); THYROID STIMULATING HORMONE 0.823 uIU/ML (0.358-3.740); TOTAL PROTEIN 6.9 GM/DL (6.4-8.2); TRIGLYCERIDES LEVEL 195 MG/DL (<150)
[2020-01-14 14:00] LABS: TOTAL 25(OH) VITAMIN D 17.1 NG/ML (30.0-100.0); VITAMIN B12 LEVEL 1018 PG/ML (247-911)
[2020-01-14 14:24] LABS: HEMOGLOBIN A1c 5.5 %
== END ==
LOC: M LAB 11:46
PROVIDERS: ATTEND Nurse Practitioner Psychiatric/Mental Health
DX: F43.10 Post-traumatic stress disorder, unspecified (principal); Z51.81 Encounter for therapeutic drug level monitoring; Z13.9 Encounter for screening, unspecified; Z79.899 Other long term (current) drug therapy

== ENCOUNTER 2020-03-20 01:57 | Emergency (ER) | payer OTHER, MEDICAID ==
[~2020-03-20] VITALS: Ht 160 cm; Wt 70.0 kg
[2020-03-20 02:55] VITALS: BP 127/85
[2020-03-20 05:17] LABS: BASO % 0.3 % (0.0-1.0); EOS # 0.2 10^3/uL (0.0-0.5); HEMATOCRIT 42.1 % (36.0-47.0); HEMOGLOBIN 14.7 g/dl (12.0-15.5); LYMPH % 40.2 % (24.0-44.0); MEAN CORPUSCULAR HEMOGLOBIN 33.9 pg (27.0-33.0); MEAN CORPUSCULAR HGB CONC 34.9 g/dl (32.0-36.5); MEAN CORPUSCULAR VOLUME 97.2 fl (80.0-96.0); MONO # 0.5 10^3/uL (0.0-0.8); MONO % 6.6 % (0.0-5.0); NEUTROPHILS # 3.8 10^3/uL (1.5-8.5); NEUTROPHILS % 49.6 % (36.0-66.0); PLATELET COUNT, AUTOMATED 229 10^3/uL (150-450); RED BLOOD COUNT 4.33 10^6/uL (4.00-5.40); WHITE BLOOD COUNT 7.6 10^3/uL (4.0-10.0)
[2020-03-20 05:23] LABS: APPEARANCE, URINE CLOUDY (CLEAR); BACTERIA, URINE AUTO NEGATIVE (NEGATIVE); BILIRUBIN, URINE AUTO NEGATIVE (NEGATIVE); BLOOD, URINE BLOOD NEGATIVE (NEGATIVE); CALCIUM OXALATE CRYSTALS SMALL; COLOR, URINE AMBER (YELLOW); GLUCOSE, URINE (UA) AUTO NEGATIVE (NEGATIVE); KETONE, URINE AUTO NEGATIVE (NEGATIVE); LEUKOCYTE ESTERASE, URINE AUTO 2+ (NEGATIVE); MUCUS, URINE LARGE (NEGATIVE); NITRITE, URINE AUTO NEGATIVE (NEGATIVE); PROTEIN, URINE AUTO 1+ mg/dL (NEGATIVE); RBC, URINE AUTO 7 /HPF (0-3); SPECIFIC GRAVITY URINE AUTO 1.033 (1.002-1.035); SQUAMOUS EPITHELIAL CELL UR AU 21 /HPF (0-6); WBC, URINE AUTO 48 /HPF (0-3)
--- NOTE | 2020-03-20 05:27 | REPVR ---
PROCEDURE INFORMATION: Exam: CT Abdomen And Pelvis Without Contrast Exam date and time: 03/20/2020 4:35 AM Age: 54 years old Clinical indication: Abdominal pain; Colic; Additional info: R colic TECHNIQUE: Imaging protocol: Computed tomography of the abdomen and pelvis without contrast. Radiation optimization: All CT scans at this facility use at least one of these dose optimization techniques: automated exposure control; mA and/or kV adjustment per patient size (includes targeted exams where dose is matched to clinical indication); or iterative reconstruction. COMPARISON: CT ABD PELVIS W/O CONTRAST 03/12/2019 8:26 PM FINDINGS: Lungs: There is right middle lobe inferior left upper lobe, lingular and bibasilar linear atelectatic changes. There is a 1.6 cm anterior left upper lobe bullae. Liver: Normal. No mass. Gallbladder and bile ducts: Moderate distention of the gallbladder is noted. Pancreas: Normal. No ductal dilation. Spleen: Normal. No splenomegaly. Adrenals: Normal. No mass. Kidneys and ureters: Normal. No hydronephrosis. Stomach and bowel: There is moderate to large colonic stool burden . Appendix: No evidence of appendicitis. Intraperitoneal space: Unremarkable. No free air. No significant fluid collection. Vasculature: There is a 1.6 cm splenic artery aneurysm. Another aneurysm is suspected near the hilum measuring 8 mm. There is moderate aortic and iliac mural calcifications. Lymph nodes: Unremarkable. No enlarged lymph nodes. Bladder: Unremarkable as visualized. Reproductive: The patient is status post hysterectomy. There is no adnexal mass. Bones/joints: Unremarkable. No acute fracture. Soft tissues: Unremarkable. IMPRESSION: 1. Moderate to large diffuse colonic stool burden. 2. No CT evidence of acute appendicitis or colitis. 3. Moderately distended gallbladder with no gross CT evidence stones or pericholecystic inflammation. Underlying subtle gallbladder disease cannot be excluded. Correlate with symptoms and LFTs. 4. 1.6 cm mid to distal splenic artery aneurysm and another aneurysm suspected measuring 8 mm suspected near the hilum. Electronically signed by: Rg Emmanuel On 03/20/2020 05:27:00 AM
[2020-03-20 05:57] LABS: AMPHETAMINES LEVEL URINE POSITIVE (NEGATIVE); BARBITURATES URINE NEGATIVE (NEGATIVE); BENZODIAZEPINES URINE NEGATIVE (NEGATIVE); CANNABINOIDS URINE POSITIVE (NEGATIVE); COCAINE METABOLITE URINE NEGATIVE (NEGATIVE); METHADONE URINE NEGATIVE (NEGATIVE); OPIATES URINE NEGATIVE (NEGATIVE); PHENCYCLIDINE URINE NEGATIVE (NEGATIVE)
[2020-03-20 06:09] LABS: ALBUMIN 3.8 GM/DL (3.2-5.2); ALT/SGPT 88 U/L (12-78); BILIRUBIN,DIRECT 0.3 MG/DL (0.0-0.2); BILIRUBIN,TOTAL 0.7 MG/DL (0.2-1.0); BLOOD UREA NITROGEN 17 MG/DL (7-18); CALCIUM LEVEL 10.2 MG/DL (8.5-10.1); CARBON DIOXIDE LEVEL 24 MEQ/L (21-32); CHLORIDE LEVEL 108 MEQ/L (98-107); CREATININE FOR GFR 0.53 MG/DL (0.55-1.30); GLOMERULAR FILTRATION RATE > 60.0 (>51); GLUCOSE, FASTING 94 MG/DL (70-100); LIPASE 59 U/L (73-393); SODIUM LEVEL 140 MEQ/L (136-145); TOTAL PROTEIN 7.8 GM/DL (6.4-8.2)
--- NOTE | 2020-03-24 13:45 | ED PDOC ---
Post-Departure Follow-Up certitied letter sent to pt for fu of ct abd/p - needs fu aliag Scott Ly MD Mar 24, 2020 13:45
== END 2020-03-20 07:23 | disposition home or self-care (01) ==
LOC: M ED 01:57
DX: R10.9 Unspecified abdominal pain (principal); F19.20 Other psychoactive substance dependence, uncomplicated; I10 Essential (primary) hypertension; J45.909 Unspecified asthma, uncomplicated; F41.9 Anxiety disorder, unspecified; K21.9 Gastro-esophageal reflux disease without esophagitis; K58.9 Irritable bowel syndrome, unspecified; K82.8 Other specified diseases of gallbladder; Z88.0 Allergy status to penicillin

== ENCOUNTER → 2020-04-08 | Outpatient (CLI) | payer OTHER, MEDICAID ==
[2020-04-08 17:41] LABS: APPEARANCE, URINE CLEAR (CLEAR); BACTERIA, URINE AUTO NEGATIVE (NEGATIVE); BILIRUBIN, URINE AUTO NEGATIVE (NEGATIVE); BLOOD, URINE BLOOD NEGATIVE (NEGATIVE); COLOR, URINE STRAW (YELLOW); GLUCOSE, URINE (UA) AUTO NEGATIVE (NEGATIVE); KETONE, URINE AUTO NEGATIVE (NEGATIVE); LEUKOCYTE ESTERASE, URINE AUTO NEGATIVE (NEGATIVE); NITRITE, URINE AUTO NEGATIVE (NEGATIVE); PROTEIN, URINE AUTO NEGATIVE (NEGATIVE); RBC, URINE AUTO 0 /HPF (0-3); SPECIFIC GRAVITY URINE AUTO 1.003 (1.002-1.035); SQUAMOUS EPITHELIAL CELL UR AU 2 /HPF (0-6); UROBILINOGEN, URINE AUTO 0.2 mg/dL (0.0-2.0); WBC, URINE AUTO 2 /HPF (0-3)
[2020-04-08 17:44] LABS: HEMATOCRIT 46.9 % (36.0-47.0); HEMOGLOBIN 15.4 g/dl (12.0-15.5); MEAN CORPUSCULAR HEMOGLOBIN 32.9 pg (27.0-33.0); MEAN CORPUSCULAR HGB CONC 32.8 g/dl (32.0-36.5); MEAN CORPUSCULAR VOLUME 100.2 fl (80.0-96.0); PLATELET COUNT, AUTOMATED 237 10^3/uL (150-450); RED BLOOD COUNT 4.68 10^6/uL (4.00-5.40); WHITE BLOOD COUNT 8.3 10^3/uL (4.0-10.0)
[2020-04-08 18:17] LABS: ALBUMIN 4.1 GM/DL (3.2-5.2); ALT/SGPT 162 U/L (12-78); BILIRUBIN,TOTAL 0.3 MG/DL (0.2-1.0); BLOOD UREA NITROGEN 11 MG/DL (7-18); CALCIUM LEVEL 10.8 MG/DL (8.5-10.1); CARBON DIOXIDE LEVEL 29 MEQ/L (21-32); CHLORIDE LEVEL 106 MEQ/L (98-107); CREATININE FOR GFR 0.61 MG/DL (0.55-1.30); GLOMERULAR FILTRATION RATE > 60.0 (>51); GLUCOSE, FASTING 92 MG/DL (70-100); SODIUM LEVEL 140 MEQ/L (136-145); TOTAL PROTEIN 7.8 GM/DL (6.4-8.2)
[2020-04-08 18:23] LABS: HEPATITIS B SURFACE ANTIBODY NEGATIVE (POSITIVE)
[2020-04-08 18:33] LABS: HEPATITIS B SURFACE ANTIGEN NEGATIVE (NEGATIVE)
[2020-04-08 19:02] LABS: HIV 1&2 SCREEN CENTAUR NEGATIVE (NEGATIVE)
[2020-04-08 19:13] LABS: HEPATITIS C VIRUS ABY INDEX > 11.0 INDEX (<0.8)
[2020-04-14 20:07] LABS: HEPATITIS B CORE ANTIBODY IGG Negative (Negative); HEPATITIS C QUANTITATION 224760 IU/mL (.); HEPATITIS C VIRUS GENOTYPE 3 (.)
== END ==
LOC: M PLALAB 12:32
PROVIDERS: ATTEND Internal Medicine Infectious Disease
DX: B18.2 Chronic viral hepatitis C (principal)
CPT/HCPCS: 36415; 80053; 81001; 81596; 85027; 86704; 86706; 86803; 87340; 87389; 87521; 87522; 87902; G0463

== ENCOUNTER → 2020-09-20 | Outpatient (REF) | payer MEDICARE, MEDICAID ==
[2020-09-20 15:26] LABS: BASO % 0.3 % (0.0-1.0); EOS # 0.3 10^3/uL (0.0-0.5); EOS % 3.5 % (0.0-3.0); HEMATOCRIT 41.5 % (36.0-47.0); HEMOGLOBIN 13.6 g/dl (12.0-15.5); LYMPH # 2.7 10^3/uL (1.5-5.0); LYMPH % 35.1 % (24.0-44.0); MEAN CORPUSCULAR HEMOGLOBIN 32.5 pg (27.0-33.0); MEAN CORPUSCULAR HGB CONC 32.8 g/dl (32.0-36.5); MONO # 0.6 10^3/uL (0.0-0.8); MONO % 7.6 % (2.0-8.0); NEUTROPHILS # 4.1 10^3/uL (1.5-8.5); NEUTROPHILS % 53.2 % (36.0-66.0); PLATELET COUNT, AUTOMATED 216 10^3/uL (150-450); RED BLOOD COUNT 4.19 10^6/uL (4.00-5.40); WHITE BLOOD COUNT 7.6 10^3/uL (4.0-10.0)
[2020-09-20 15:45] LABS: ALBUMIN 3.9 GM/DL (3.2-5.2); ALT/SGPT 109 U/L (12-78); BILIRUBIN,TOTAL 0.4 MG/DL (0.2-1.0); BLOOD UREA NITROGEN 20 MG/DL (7-18); CALCIUM LEVEL 9.8 MG/DL (8.5-10.1); CARBON DIOXIDE LEVEL 29 MEQ/L (21-32); CHLORIDE LEVEL 105 MEQ/L (98-107); GLOMERULAR FILTRATION RATE > 60.0 (>51); GLUCOSE, FASTING 92 MG/DL (70-100); POTASSIUM SERUM 4.5 MEQ/L (3.5-5.1); SODIUM LEVEL 138 MEQ/L (136-145); TOTAL PROTEIN 7.2 GM/DL (6.4-8.2)
[2020-09-22 23:10] LABS: HEPATITIS C QUANTITATION 281300 IU/mL (.)
== END ==
LOC: M SFHCPLAZ 14:04
PROVIDERS: ATTEND Internal Medicine Infectious Disease
DX: B18.2 Chronic viral hepatitis C (principal); Z23 Encounter for immunization
CPT/HCPCS: 36415; 80053; 85025; 87522; 90471; 90636; G0463

== ENCOUNTER → 2020-11-16 | Outpatient (CLI) | payer OTHER, MEDICAID ==
--- NOTE | 2020-11-16 12:01 | REP ---
INDICATION: ANEURYSM SPLENIC ARTERY ANEURYSM. COMPARISON: Multiple the latest 03/20/2020 TECHNIQUE: Limited noncontrast enhanced helical CT FINDINGS: The lung bases are stable. Limited evaluation of the solid intra-organs and gallbladder show no gross abnormalities or significant changes from the prior exam. Limited evaluation of the pancreas, adrenal glands, and kidneys show no gross abnormalities or significant changes. Limited evaluation of the abdominal aorta and para-regions show no gross abnormalities or significant changes. Limited evaluation of the bowel loops and the mesenteries show no gross abnormalities or significant changes from the prior exam. There is no free fluid or free air. The partially wall calcified splenic arterial aneurysm mention on the prior exam appears unchanged although seen in limited fashion without intravenous contrast. Bone window technique throughout the examination shows no changes the osseous structures IMPRESSION: Stable limited examination with findings and limitations as described above. <Electronically signed by Jose Rafael Laureano > 11/16/20 [id number]
== END ==
LOC: M RAD 10:39
PROVIDERS: ATTEND Physician Assistant
DX: I72.8 Aneurysm of other specified arteries (principal)

== ENCOUNTER → 2020-11-18 | Outpatient (REF) | payer MEDICARE, MEDICAID ==
[2020-11-18 16:05] LABS: ALBUMIN 3.6 GM/DL (3.2-5.2); BILIRUBIN,DIRECT 0.1 MG/DL (0.0-0.2); BILIRUBIN,TOTAL 0.4 MG/DL (0.2-1.0); TOTAL PROTEIN 7.3 GM/DL (6.4-8.2)
[2020-11-20 15:23] LABS: HEPATITIS C QUANTITATION <15 IU/mL (.)
== END ==
LOC: M SFHCPLAZ 13:48
PROVIDERS: ATTEND Internal Medicine Infectious Disease
DX: B18.2 Chronic viral hepatitis C (principal); Z23 Encounter for immunization
CPT/HCPCS: 36415; 80076; 87522; 90636; G0463

== ENCOUNTER → 2020-11-22 | Outpatient (CLI) | payer MEDICARE, MEDICAID ==
--- NOTE | 2020-11-22 14:13 | REP ---
INDICATION: VENOUS INSUFFICIENCY COMPARISON: None. TECHNIQUE: Real time compression and duplex Doppler interrogation of the bilateral lower extremity deep venous system is performed. FINDINGS: Bilaterally, the common femoral, superficial femoral and popliteal veins are fully compressible with transducer pressure and demonstrate normal spontaneous and phasic flow, without evidence of deep venous thrombosis. Evaluation for venous reflux is performed. On the right there is no reflux in any of the deep veins, nor in the greater saphenous vein or lesser saphenous vein. The greater saphenous vein measures 4 mm throughout, the lesser saphenous vein measures 3 mm. There is an anterior accessory greater saphenous vein present measuring 4 mm. With the bed tipped there is some reflux in the common femoral vein with duration of 2.4 seconds. There is no reflux in the femoral vein or popliteal vein. There is no reflux in the greater saphenous vein, which measures 5 mm at the saphenofemoral junction, 4 mm at the midthigh of 3 mm the knee. There is no reflux in the lesser saphenous vein which measures 2 mm. There is an anterior accessory greater saphenous vein present. IMPRESSION: No evidence of deep venous thrombosis of the bilateral lower extremity femoral popliteal venous system. There is only mild reflux in the left common femoral vein. No reflux in the bilateral greater saphenous or lesser saphenous veins. <Electronically signed by Augusto Rios > 11/22/20 [id number]
== END ==
LOC: M RAD 12:22
PROVIDERS: ATTEND Physician Assistant
DX: I87.2 Venous insufficiency (chronic) (peripheral) (principal)

== ENCOUNTER → 2021-01-27 | Outpatient (CLI) | payer OTHER, MEDICAID ==
[~2021-01-27] MED LIST changes: +AMIT25TA17 PO; +CETI10CH PO; +NEXI20CA PO
[2021-01-27 15:37] LABS: APPEARANCE, URINE HAZY (CLEAR); BACTERIA, URINE AUTO 1+ (NEGATIVE); BASO % 0.3 % (0.0-1.0); BILIRUBIN, URINE AUTO NEGATIVE (NEGATIVE); BLOOD, URINE BLOOD NEGATIVE (NEGATIVE); COLOR, URINE YELLOW (YELLOW); EOS # 0.2 10^3/uL (0.0-0.5); EOS % 1.8 % (0.0-3.0); GLUCOSE, URINE (UA) AUTO NEGATIVE (NEGATIVE); HEMATOCRIT 41.8 % (36.0-47.0); HEMOGLOBIN 14.1 g/dl (12.0-15.5); KETONE, URINE AUTO NEGATIVE (NEGATIVE); LEUKOCYTE ESTERASE, URINE AUTO 1+ (NEGATIVE); LYMPH # 3.7 10^3/uL (1.5-5.0); LYMPH % 30.9 % (24.0-44.0); MEAN CORPUSCULAR HEMOGLOBIN 32.3 pg (27.0-33.0); MEAN CORPUSCULAR HGB CONC 33.7 g/dl (32.0-36.5); MEAN CORPUSCULAR VOLUME 95.9 fl (80.0-96.0); MONO # 0.8 10^3/uL (0.0-0.8); MONO % 6.5 % (2.0-8.0); MUCUS, URINE SMALL (NEGATIVE); NEUTROPHILS # 7.1 10^3/uL (1.5-8.5); NEUTROPHILS % 59.3 % (36.0-66.0); NITRITE, URINE AUTO NEGATIVE (NEGATIVE); PLATELET COUNT, AUTOMATED 192 10^3/uL (150-450); PROTEIN, URINE AUTO NEGATIVE (NEGATIVE); RBC, URINE AUTO 0 /HPF (0-3); RED BLOOD COUNT 4.36 10^6/uL (4.00-5.40); SPECIFIC GRAVITY URINE AUTO 1.011 (1.002-1.035); SQUAMOUS EPITHELIAL CELL UR AU 2 /HPF (0-6); UROBILINOGEN, URINE AUTO 0.2 mg/dL (0.0-2.0); WBC, URINE AUTO 11 /HPF (0-3); WHITE BLOOD COUNT 11.9 10^3/uL (4.0-10.0)
[2021-01-27 16:06] LABS: ALBUMIN 3.7 GM/DL (3.2-5.2); ALT/SGPT 24 U/L (12-78); BILIRUBIN,DIRECT < 0.1 MG/DL (0.0-0.2); BILIRUBIN,TOTAL 0.2 MG/DL (0.2-1.0); TOTAL PROTEIN 7.6 GM/DL (6.4-8.2)
[2021-01-29 21:10] LABS: HEPATITIS C QUANTITATION HCV Not Detected IU/mL (.)
== END ==
LOC: M PLALAB 14:03
PROVIDERS: ATTEND Internal Medicine Infectious Disease
DX: B18.2 Chronic viral hepatitis C (principal); R35.0 Frequency of micturition
CPT/HCPCS: 36415; 80076; 81001; 85025; 87086; 87522; G0463

== ENCOUNTER 2021-02-10 19:12 | Emergency (ER) | payer OTHER, MEDICAID ==
[~2021-02-10] VITALS: Ht 160 cm; Wt 68.2 kg
[~2021-02-10 19:12] MED LIST changes: -AMIT25TA17 PO; -CETI10CH PO; -NEXI20CA PO
[2021-02-10] MEDS ORDERED: KETOROLAC 30 MG/ML 1ML VIAL IV ONE (19:55)
[2021-02-10] MEDS ORDERED: METOCLOPRAMIDE INJ 10MG/2ML VIAL (J2765 PER 1) IV ONE (19:55)
[2021-02-10] MEDS ORDERED: AMIT25TA17 PO (19:57)
[2021-02-10] MEDS ORDERED: CETI10CH PO (19:57)
[2021-02-10] MEDS ORDERED: NEXI20CA PO (19:57)
[2021-02-10 22:00] VITALS: BP 147/82
== END 2021-02-10 22:25 | disposition home or self-care (01) ==
LOC: M ED 19:12
DX: G43.909 Migraine, unspecified, not intractable, without status migrainosus (principal); I10 Essential (primary) hypertension; J45.909 Unspecified asthma, uncomplicated; B19.20 Unspecified viral hepatitis C without hepatic coma; F15.10 Other stimulant abuse, uncomplicated; F33.9 Major depressive disorder, recurrent, unspecified; F41.9 Anxiety disorder, unspecified; F43.10 Post-traumatic stress disorder, unspecified; K58.9 Irritable bowel syndrome, unspecified; Z79.899 Other long term (current) drug therapy; Z88.0 Allergy status to penicillin
CPT/HCPCS: 96374; 96375; 99284; J1885; J2765

== ENCOUNTER → 2021-04-29 | Outpatient (CLI) | payer OTHER, MEDICAID ==
[~2021-04-29] MED LIST changes: +AMIT25TA17 PO; +CETI10CH PO; +NEXI20CA PO
--- NOTE | 2021-04-29 15:03 | REP ---
INDICATION: SPLENIC ARTERY ANEURYSM. COMPARISON: Multiple the latest 11/16/2020 also without contrast TECHNIQUE: Standard helical technique without intravenous or oral bowel preparatory contrast FINDINGS: Lung bases are unchanged. There are no pleural or pericardial effusions. The liver, gallbladder, spleen, pancreas, adrenal glands, and kidneys are unchanged. The abdominal aorta and para-aortic regions are unchanged. There is no significant change in appearance of the bowel loops or the mesenteries. There is no evidence of a mass or adenopathy. There is no free fluid or free air. A wall calcified splenic artery aneurysm is again noted status quo. Bone window technique throughout the examination shows the osseous structures to be stable and intact. IMPRESSION: No significant change compared to the prior exam with findings as described above. <Electronically signed by Jose Rafael Laureano > 04/29/21 [id number]
== END ==
LOC: M RAD 14:10
PROVIDERS: ATTEND Surgery
DX: I72.8 Aneurysm of other specified arteries (principal)

== ENCOUNTER → 2021-06-30 | Outpatient (CLI) | payer OTHER, MEDICAID ==
[2021-06-30 18:06] LABS: BASO % 0.2 % (0.0-1.0); EOS # 0.2 10^3/uL (0.0-0.5); EOS % 2.4 % (0.0-3.0); HEMATOCRIT 40.7 % (36.0-47.0); HEMOGLOBIN 13.4 g/dl (12.0-15.5); LYMPH # 2.7 10^3/uL (1.5-5.0); MEAN CORPUSCULAR HEMOGLOBIN 31.1 pg (27.0-33.0); MEAN CORPUSCULAR HGB CONC 32.9 g/dl (32.0-36.5); MEAN CORPUSCULAR VOLUME 94.4 fl (80.0-96.0); MONO # 0.6 10^3/uL (0.0-0.8); MONO % 7.2 % (2.0-8.0); NEUTROPHILS # 4.6 10^3/uL (1.5-8.5); NEUTROPHILS % 56.8 % (36.0-66.0); PLATELET COUNT, AUTOMATED 218 10^3/uL (150-450); RED BLOOD COUNT 4.31 10^6/uL (4.00-5.40)
[2021-06-30 18:27] LABS: ALBUMIN 3.8 GM/DL (3.2-5.2); ALT/SGPT 22 U/L (12-78); BILIRUBIN,DIRECT < 0.1 MG/DL (0.0-0.2); BILIRUBIN,TOTAL 0.7 MG/DL (0.2-1.0); TOTAL PROTEIN 7.6 GM/DL (6.4-8.2)
[2021-07-02 14:17] LABS: HEPATITIS C QUANTITATION HCV Not Detected IU/mL (.)
== END ==
LOC: M PLALAB 13:41
PROVIDERS: ATTEND Internal Medicine Infectious Disease
DX: B18.2 Chronic viral hepatitis C (principal)
CPT/HCPCS: 36415; 80076; 85025; 87522; G0463

== ENCOUNTER → 2021-07-06 | Outpatient (CLI) | payer OTHER, MEDICAID ==
--- NOTE | 2021-07-06 11:34 | REP ---
INDICATION: NONTOXIC GOITER COMPARISON: 02/19/2019 TECHNIQUE: Rios scale and color evaluation of the thyroid gland using the linear high frequency transducer. FINDINGS: Thyroid gland is enlarged and heterogeneous consistent with multinodular goiter. Right lobe measures 6.1 x 2.1 x 2.2 cm with the largest nodules identified measuring 2.6 x 2.0 x 1.8 cm in the lower pole, 1.2 x 0.8 x 1.1 cm in the upper pole, and 1.0 x 0.8 x 1.0 cm in the mid/upper pole. Isthmus measures 16 mm in width and includes 2.3 x 1.5 x 2.0 cm complex nodule. Left lobe measures 5.4 x 1.8 x 1.9 cm and includes small sub cm nodules including 6 mm nodule in the upper pole with calcification. IMPRESSION: Multinodular goiter relatively unchanged from prior examination. <Electronically signed by Ez Zafar > 07/06/21 [id number]
== END ==
LOC: M RAD 10:01
PROVIDERS: ATTEND Internal Medicine
DX: E04.9 Nontoxic goiter, unspecified (principal)

== ENCOUNTER → 2023-11-05 | Outpatient (CLI) | payer OTHER, MEDICAID ==
[~2023-11-05] MED LIST changes: +AMIT-257 PO; -AMIT25TA17 PO; +AMIT25TA19 PO; +CYCL5TAB PO; -KLON1TAB PO; +KLON1TAB13 PO; +METO1TAB32 PO; +SUMA50TA2 PO; +ZOLO25TA PO
== END ==
LOC: M WHC 09:20
PROVIDERS: ATTEND Physician Assistant Medical
DX: C50.412 Malignant neoplasm of upper-outer quadrant of left female breast (principal); Z17.0 Estrogen receptor positive status [ER+]; R93.7 Abnormal findings on diagnostic imaging of other parts of musculoskeletal system; M81.0 Age-related osteoporosis without current pathological fracture